=== PATIENT | male | born 1950 | race Caucasian/White ===

== ENCOUNTER 2018-05-20 23:16 | Emergency (ER) | payer OTHER ==
--- OUTSIDE RECORDS SUMMARY | 2018-05-20 23:19 | XMS REPORT | Clinical Summary ---
:1950 Author Organization [facility] Address [address] [place] [address] Care Team Providers Name Role Phone Eros Merritt MD Primary Care Provider Allergies Active Allergy Reactions Severity Noted Date Comments Mold Medications Medication Sig Dispensed Refills Start Date End Date Status atorvastatin Take 10 mg by 0 09/07/2017 Active (LIPITOR) 10 MG mouth nightly. tablet carvedilol (COREG) Take 12.5 mg 0 11/23/2017 Active 12.5 MG tablet by mouth 2 (two) times a day. losartan (COZAAR) 100 Take 100 mg by 0 09/07/2017 Active MG tablet mouth nightly. multivitamin with Take 1 tablet 0 Active minerals tablet by mouth daily. glucosam/chond/msm/sahil Take 3 tablets 0 Active jason/hyal by mouth (GLUCOSAMINE-CHONDR, daily. MSM-HYAL, ORAL) vit C/vit Take 1 tablet 0 Active E/lutein/min/omega-3 by mouth (OCUVITE ORAL) daily. Lactobacillus Take 2 0 Active acidophilus capsules by (PROBIOTIC ORAL) mouth daily. ascorbate calcium Take 1,000 mg 0 Active (VITAMIN C ORAL) by mouth daily. GINKGO BILOBA EXTRACT Take 1 capsule 0 Active ORAL by mouth daily. TURMERIC ORAL Take by mouth. 0 Active curaphen ( turmeric and curcumin) Daily diphenhydrAMINE Take 25 mg by 0 Active (BENADRYL) 25 mg mouth as tablet needed for allergies. docosahexanoic Take 1 capsule 0 Active acid/epa (FISH OIL by mouth ORAL) daily. aspirin 325 MG tablet Take 325 mg by 0 Active mouth 2 (two) times a day as needed. amoxicillin-pot 0 12/21/2017 Discontinued clavulanate 8 (AUGMENTIN) 875-125 mg per tablet bacitracin-polymyxin 0 12/21/2017 Discontinued B (POLYSPORIN) 8 ophthalmic ointment aspirin 325 MG tablet Take 325 mg by 0 Discontinued mouth daily. 8 acetaminophen-codeine Take 1 tablet 60 tablet 0 03/13/2018 (TYLENOL WITH CODEINE by mouth every 9 #3) 300-30 mg per 4 (four) hours tablet as needed for moderate pain for up to 30 days. diazePAM (VALIUM) 5 Take 0.5 20 tablet 0 03/13/2018 Discontinued MG tablet tablets (2.5 8 mg total) by mouth every 8 (eight) hours as needed for muscle spasms for up to 10 days. Active Problems Problem Noted Date S/P cervical spinal fusion 03/11/2018 Degenerative cervical spinal stenosis 12/24/2017 Spinal stenosis of lumbar region with neurogenic claudication 12/24/2017 DDD (degenerative disc disease), cervical 12/09/2017 DDD (degenerative disc disease), lumbar 12/09/2017 Left leg pain 12/09/2017 Right hand pain 12/09/2017 Encounters Date Type Specialty Care Team Description 05/02/2018 Hospital Encounter Ricardo Rened (Patient) MD [facility] 05/02/2018 Hospital Encounter Ricardo Ren Lumbosacral stenosis MD [facility] 05/02/2018 Hospital Encounter Ricardo Ren Lumbosacral anthony Malagon MD 04/25/2018 Transcribe Orders Ricardo Ren Lumbosacral stenosis MD [facility] (Primary Dx) 04/22/2018 Hospital Encounter Ricardo Ren Cervical radiculitis MD [facility] 04/22/2018 Transcribe Orders Ricardo Ren Brachial neuritis ( Primary Dx); MD [facility] Cervical radiculitis 04/08/2018 Office Visit Orthopedic Surgery Magdaleno Ball MD syndrome, unspecified laterality (Primary Dx) 03/24/2018 Anesthesia Event Orthopedic Surgery Shelby Jane MD 03/24/2018 Surgery Orthopedic Surgery Magdaleno Ball MD CARPAL TUNNEL RELEASE AND ANY INDICATED PROCEDURES 03/24/2018 Hospital Encounter Orthopedic Surgery Magdaleno Ball MD 03/11/2018 Surgery General Surgery Ricardo Cortez POSTERIOR CERVICAL MD [facility] LAMINECTOMY AND FUSION W/ ALLOGRAFT, AUTOGRAFT C2-C7 03/11/2018 Anesthesia Event General Surgery Asia Castillo NP 03/11/2018 - Hospital Encounter General Internal Ricardo Cortez DDD ( degenerative disc disease), cervical; 03/13/2018 Medicine MD [facility] Cervical spinal stenosis; Radiculopathy, cervical 03/07/2018 Pre-Admit Testing Pre-Admission Ricardo Cortez Pre-op testing Appointment Testing MD [facility] (Primary Dx) 02/28/2018 Office Visit Orthopedic Surgery Magdaleno Ball Right hand pain MD Mauricio (Primary Dx) 12/24/2017 Office Visit Orthopedic Surgery Danny Wang DDD ( degenerative disc disease), lumbar (Primary Dx); MD Judd DDD (degenerative disc disease), cervical; Degenerative cervical spinal stenosis; Spinal stenosis of lumbar region with neurogenic claudication 12/09/2017 Office Visit Orthopedic Surgery Danny Wang Right hand pain (Primary Dx); MD Judd Left leg pain; DDD (degenerative disc disease), lumbar; DDD (degenerative disc disease), cervical after 05/19/2017 Family History Medical History Relation Name Comments Dementia Mother Heart failure Mother Relation Name Status Comments Father Mother Social History Tobacco Use Types Packs/Day Years Used Date Former Smoker Cigarettes, Cigars 0.25 20 Quit: 1999 Smokeless Tobacco: Never Used Comments: cigar - 1/day also quit 20 years ago Alcohol Use Drinks/Week oz/Week Comments Yes 1 bottle of wine/day - approx 28 servings per week Sex Assigned at Date Recorded Not on file Job Start Date Occupation Industry Not on file Not on file Not on file Travel History Travel Start Travel End No recent travel history available. Last Filed Vital Signs Vital Sign Reading Time Taken Blood Pressure 159/93 05/02/2018 3:30 PM ACTUARIAL ASSOCIATE Pulse 83 05/02/2018 3:30 PM ACTUARIAL ASSOCIATE Temperature 36.7 C (98 F) 05/02/2018 2:50 PM ACTUARIAL ASSOCIATE Respiratory Rate 18 05/02/2018 3:30 PM ACTUARIAL ASSOCIATE Oxygen Saturation 99% 05/02/2018 3:30 PM ACTUARIAL ASSOCIATE Inhaled Oxygen Concentration - - Weight 85.3 kg (188 lb) 05/02/2018 12:16 PM ACTUARIAL ASSOCIATE Height 185.4 cm (6' 1") 05/02/2018 12:16 PM ACTUARIAL ASSOCIATE Body Mass Index 24.8 05/02/2018 12:16 PM ACTUARIAL ASSOCIATE Plan of Treatment Health Maintenance Due Date Last Done Comments COLON CANCER SCREENING 1998 SHINGLES VACCINES (1 of 2) 1998 PNEUMOCOCCAL POLYSACCHARIDE VACCINE AGE 65 AND OVER 2013 PNEUMOCOCCAL-13 Completed 04/30/2016 INFLUENZA VACCINE Completed 01/03/2018 Implants Implanted Type Area Dev Technical Mgr Device Shelf Model / Identifier Expiration Serial / Lot Date Bone Matriz Osteocel Pro Small - [id number] - [id number] Human N/A: NUVASIVE 09/28/2022 [id number] / Implanted: Qty: 1 on 03/11/2018 by Ricardo Cortez MD Tissue N/A [id number] / Implants LOT NA Bone Matriz Osteocel Pro Medium - [id number] - [id number] Human N/A: NUVASIVE 04/07/2022 [id number] / Implanted: Qty: 1 on 03/11/2018 by Ricardo Cortez MD Tissue N/A [id number] / Implants LOT NA Bone Matriz Osteocel Pro Small - [id number] - [id number] Human N/A: NUVASIVE 09/29/2022 [id number] / Implanted: Qty: 1 on 03/11/2018 by Ricardo Cortez MD Tissue N/A [id number] / Implants LOT NA Propel [employer], Large Boat - [id number] - [id number] [id number] IMPLANT N/A: NUVASIVE SPINE 09/21/2019 [id number] / Implanted: Qty: 1 on 03/11/2018 by Ricardo Cortez MD DEVICES N/A [id number] / [id number] Wind Power Project Manager Ii Set Screw - [id number] [id number] IMPLANT N/A: NUVASIVE SPINE [id number] / Implanted: 03/11/2018 (Quantity not on file) DEVICES N/A / 3.5mm Multi Axial Screw X 18mm L - [id number] [id number] IMPLANT N/A: NUVASIVE SPINE [id number] / Implanted: 03/11/2018 (Quantity not on file) DEVICES N/A / 3.5x20mm Multi-Axial - [id number] [id number] IMPLANT N/A: NUVASIVE SPINE [id number] / Implanted: 03/11/2018 (Quantity not on file) DEVICES N/A / 3.5mm Multi Axial Screw X 14mm L - [id number] [id number] IMPLANT N/A: NUVASIVE SPINE [id number] / Implanted: 03/11/2018 (Quantity not on file) DEVICES N/A / 3.5mm Multi Axial Screw X 16mm L - [id number] [id number] IMPLANT N/A: NUVASIVE SPINE [id number] / Implanted: 03/11/2018 (Quantity not on file) DEVICES N/A / 240mm Judd,3.5mm - [id number] [id number] IMPLANT N/A: NUVASIVE SPINE [id number] / Implanted: 03/11/2018 (Quantity not on file) DEVICES N/A / Offset Connector Ortho - N/A: NUVASIVE[employer]. 04/05/2019 [id number] / Implanted: Qty: 1 on 03/11/2018 by Ricardo Cortez MD Spinal N/A [id number] / Implant [id number] Procedures Procedure Name Priority Date/Time Associated Diagnosis Comments CT POST MYELOGRAM Routine 05/02/2018 2:50 Lumbosacral stenosis Results for this LUMBAR PM ACTUARIAL ASSOCIATE procedure are in the results section. IR MYELOGRAM LUMB Routine 05/02/2018 1:29 Lumbosacral stenosis Results for this INCL INJ W S&I PM ACTUARIAL ASSOCIATE procedure are in the results section. XR CERVICAL SPINE Routine 04/22/2018 11:25 Cervical radiculitis Results for this COMPLETE AM ACTUARIAL ASSOCIATE procedure are in the results section. ANESTHESIA Routine 03/24/2018 8:05 PERIPHERAL BLOCK AM ACTUARIAL ASSOCIATE Procedure Note - Lonnie Marx CRNA - 03/24/2018 8:05 AM ACTUARIAL ASSOCIATE Peripheral Block Performed by: Lonnie Marx CRNA Authorized by: Shelby Jane MD Patient Location: OR Start Time: 03/24/2018 8:05 AM End Time: 03/24/2018 8:08 AM Reason for Block: at surgeon's request Staff: Anesthesiologist: Shelby Jane MD Resident/RFID STRATEGIST/AA: Lonnie Marx CRNA Preprocedure: patient identified, IV checked, site and side verified, risks and benefits discussed, procedure verified, surgical consent complete, patient position confirmed, monitors and equipment checked, pre-op evaluation complete and site marked Time Out Performed: 03/24/2018 8:05 AM Peripheral Nerve Block: Patient Position: Supine Prep: alcohol swabs Monitoring: Heart rate, CO2, continuous pulse oximetry and blood pressure monitoring Block Type: Tara block Laterality: Right Injection Technique: Single injection Needle: Needle Gauge: 22 G Assessment: Injection Assessment: No symptoms of intraneural/intravenous injection Paresthesia Pain: None Heart Rate Change: No Slow Fractionated Injection: Yes Block outcome: No apparent complications, patient tolerated procedure well and patient comfortable Notes: R-UE esmarc exsang/tour upx 2/IV lidocaine CARPAL TUNNEL 03/24/2018 8:00 AM Carpal tunnel RELEASE, ENDOSCOPIC ACTUARIAL ASSOCIATE syndrome on right SURGICAL PATHOLOGY Routine 03/11/2018 3:22 PM Results for this REQUEST ACTUARIAL ASSOCIATE procedure are in the results section. OR FL > 1 HOUR Routine 03/11/2018 3:00 PM Results for this ACTUARIAL ASSOCIATE procedure are in the results section. ARTERIAL LINE Routine 03/11/2018 12:55 PM ACTUARIAL ASSOCIATE Procedure Note - Yannick Peralta MD - 03/11/2018 12:55 PM ACTUARIAL ASSOCIATE Arterial line Performed by: Yannick Peralta MD Authorized by: Yannick Peralta MD Patient Location: OR Start Time: 03/11/2018 11:10 AM Staff: Anesthesiologist: Yannick Peralta MD Pre-procedure: patient identified, IV checked, site and side verified, risks and benefits discussed, procedure verified, surgical consent complete, patient position confirmed, monitors and equipment checked and pre-op evaluation complete MSBT: antiseptic used, all elements of maximal sterile barrier technique followed, hand hygiene performed, cap/gown used by other personnel and solutions labeled Indications: Indications: hemodynamic monitoring Anesthesia: Anesthesia: General Procedure Details: Arterial Line placement: Placed post induction Line placement site: Radial Line placement side: Right Arterial line gauge: 20 G Number of attempts: 1 Ultrasound guidance used: No Post-procedure: Post-procedure: Sterile dressing applied Post procedure circulation, sensation, movement: Unchanged and normal Patient tolerance: Patient tolerated the procedure well with no immediate complications NM AN ELECTIVE ENDOTRACHEAL AIRWAY Routine 03/11/2018 11:51 AM ACTUARIAL ASSOCIATE Procedure Note - Farhan Velazquez CRNA - 03/11/2018 11:51 AM ACTUARIAL ASSOCIATE ANESTHESIA INTUBATION Date/Time: 03/11/2018 11:10 AM Performed by: Farhan Velazquez CRNA Authorized by: Yannick Peralta MD Location: OR Urgency: Elective Difficult Airway: No Preoxygenated with 100% O2: Yes C-spine Precautions Maintained Throughout: Yes Mask Ventilation: Easy mask Final Airway Type: Endotracheal airway Final Endotracheal Airway: ETT Technique Used: Direct laryngoscopy Devices/Methods Used in Placement: Intubating stylet Insertion Site: Oral Blade Type: Larry Laryngoscope Blade/Videolaryngoscope Blade Size: 3 ETT Size (mm): 8.0 Measured from: Lips ETT to Lips (cm): 23 Placement Verified by: CO2 detection, direct visualization and equal breath sounds Laryngoscopic view: Grade I - full view of glottis Rapid Sequence Induction (RSI): No Number of Attempts at Approach: 1 FUSION, SPINE, 03/11/2018 11:15 AM ACTUARIAL ASSOCIATE DDD (degenerative disc disease), CERVICAL, POSTERIOR cervical APPROACH Cervical spinal stenosis Radiculopathy, cervical Case Notes PRONE POSITION, EST 3 HRS, BRYAN TABLE, C-ARM, YU HEADREST, NUVASIVE RAVINDER POINT 2, OSTEOCEL Special Needs PRONE POSITION, EST 3 HRS, BRYAN TABLE, C-ARM, YU HEADREST, NUVASIVE RAVINDER POINT 2, OSTEOCEL TYPE AND SCREEN STAT 03/11/2018 8:00 AM Results for this ACTUARIAL ASSOCIATE procedure are in the results section. ESTIMATED GFR Routine 03/07/2018 1:50 PM Results for this ACTUARIAL ASSOCIATE procedure are in the results section. CBC HEMOGRAM Routine 03/07/2018 1:50 PM Pre-op testing Results for this ACTUARIAL ASSOCIATE procedure are in the results section. BASIC METABOLIC Routine 03/07/2018 1:50 PM Pre-op testing Results for this PANEL ACTUARIAL ASSOCIATE procedure are in the results section. XR HAND 3+ VW RIGHT Routine 02/28/2018 1:07 PM Right hand pain Results for this ACTUARIAL ASSOCIATE procedure are in the results section. MRI CERVICAL SPINE Routine 12/15/2017 4:06 PM Right hand pain Results for this WO CONTRAST CDT DDD (degenerative procedure are in disc disease), the results cervical section. MRI LUMBAR SPINE WO Routine 12/15/2017 4:06 PM Left leg pain Results for this CONTRAST CDT DDD (degenerative procedure are in disc disease), the results lumbar section. XR LUMBAR SPINE Routine 12/09/2017 1:44 PM Left leg pain Results for this COMPLETE 4+ VW CDT procedure are in the results section. XR CERVICAL SPINE Routine 12/09/2017 1:44 PM Right hand pain Results for this COMPLETE CDT procedure are in the results section. after 05/19/[address] Post Myelogram Lumbar (05/02/2018 2:50 PM ACTUARIAL ASSOCIATE) Narrative Performed At EXAMINATION: CT POST MYELOGRAM LUMBAR [facility] CLINICAL HISTORY: M48.07 Spinal stenosislumbosacral region, lumbar stenosis, left COMPARISON:MRI 12/15/2017 TECHNIQUE: Axial postintrathecal contrast enhanced images of the lumbar spine were obtained with coronal and sagittal MIP reconstructed imaging. CT imaging was performed with iterative reconstruction technique and/or automated exposure control to reduce radiation dose. FINDINGS: For the purposes of this dictation, the last well-defined interspace is called L5-S1. Mild retrolisthesis of L5 on S1 and L1 and L2. Subtle dextrocurvature of the lumbar spine. Lumbar vertebral body heights are maintained. Multilevel disc degeneration worst at L4-L5 and L5-S1 where there is disc vacuum phenomenon and osteophytosis. 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 The conus medullaris terminates at T12-L1 level.Redundancy of the cauda equina nerve roots likely secondary to spinal stenosis. Left T11-T12 superior lateral recess narrowing. L1-2: Retrolisthesis and disc osteophyte complex results in moderate spinal stenosis. Left greater than right facet arthropathy. Mild left neural foraminal narrowing. L2-3: Disc bulge along with left greater than right facet arthropathy and ligamentum flavum thickening results in marked spinal stenosis. Mild left neural foraminal narrowing. L3-4: Disc bulge along with right greater than left facet arthropathy and ligamentum flavum thickening results in moderate to marked spinal stenosis. Right subarticular zone stenosis. Moderate left and mild right neural foraminal narrowing. L4-5: Disc bulge along with right greater than left facet arthropathy results in marked spinal stenosis and right greater than left subarticular zone stenosis. Moderate left and marked right neural foraminal narrowing with impingement of the exiting right L4 nerve root. L5-S1: Disc bulge with central disc protrusion with inferior migration of disc material results in moderate to marked central spinal stenosis and left greater than right lateral recess stenosis. There is moderate to marked left and moderate to marked right neural foraminal narrowing. No acute fracture or traumatic malalignment of the lumbar spine. There is atherosclerosis of the abdominal aorta. IMPRESSION: Multilevel spondylotic changes of the lumbar spine with multifactorial multilevel moderate to marked spinal stenosis. Multilevel neural foraminal narrowing probably worst at L4-L5 on the right likely impinging on the exiting right L4 nerve root. See level by level details above. [facility]-[id number] Procedure Note [facility], Radiology Results - 05/03/2018 6:26 PM ACTUARIAL ASSOCIATE EXAMINATION: CT POST MYELOGRAM LUMBAR CLINICAL HISTORY: M48.07 Spinal stenosis lumbosacral region, lumbar stenosis, left COMPARISON: MRI 12/15/2017 TECHNIQUE: Axial postintrathecal contrast enhanced images of the lumbar spine were obtained with coronal and sagittal MIP reconstructed imaging. CT imaging was performed with iterative reconstruction technique and/or automated exposure control to reduce radiation dose. FINDINGS: For the purposes of this dictation, the last well-defined interspace is called L5-S1. Mild retrolisthesis of L5 on S1 and L1 and L2. Subtle dextrocurvature of the lumbar spine. Lumbar vertebral body heights are maintained. Multilevel disc degeneration worst at L4-L5 and L5-S1 where there is disc vacuum phenomenon and osteophytosis. 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 The conus medullaris terminates at T12-L1 level. Redundancy of the cauda equina nerve roots likely secondary to spinal stenosis. Left T11-T12 superior lateral recess narrowing. L1-2: Retrolisthesis and disc osteophyte complex results in moderate spinal stenosis. Left greater than right facet arthropathy. Mild left neural foraminal narrowing. L2-3: Disc bulge along with left greater than right facet arthropathy and ligamentum flavum thickening results in marked spinal stenosis. Mild left neural foraminal narrowing. L3-4: Disc bulge along with right greater than left facet arthropathy and ligamentum flavum thickening results in moderate to marked spinal stenosis. Right subarticular zone stenosis. Moderate left and mild right neural foraminal narrowing. L4-5: Disc bulge along with right greater than left facet arthropathy results in marked spinal stenosis and right greater than left subarticular zone stenosis. Moderate left and marked right neural foraminal narrowing with impingement of the exiting right L4 nerve root. L5-S1: Disc bulge with central disc protrusion with inferior migration of disc material results in moderate to marked central spinal stenosis and left greater than right lateral recess stenosis. There is moderate to marked left and moderate to marked right neural foraminal narrowing. No acute fracture or traumatic malalignment of the lumbar spine. There is atherosclerosis of the abdominal aorta. IMPRESSION: Multilevel spondylotic changes of the lumbar spine with multifactorial multilevel moderate to marked spinal stenosis. Multilevel neural foraminal narrowing probably worst at L4-L5 on the right likely impinging on the exiting right L4 nerve root. See level by level details above. [facility]-[id number] Performing Organization Address City/State/Zipcode Phone Number [facility] [address] [place] [address] IR Myelogram Lumb Incl Inj W S&I (05/02/2018 1:29 PM ACTUARIAL ASSOCIATE) Narrative Performed At EXAMINATION:IR MYELOGRAM LUMB INCL INJ W S&I [facility] CLINICAL HISTORY:M48.07 Spinal stenosislumbosacral region, lumbar stenosis COMPARISON:None. PROCEDURE After informed consent was obtained, the patient was placed in the prone position on the fluoroscopy table. The low back was prepped and draped in usual manner. Local anesthesia was made by infiltration percent Xylocaine. Under sterile technique and utilizing fluoroscopic guidance, lumbar puncture was made at the level of the L1 to intervertebral disc space. Approximately 8 mL of Omnipaque 240 milligram iodine per mL were injected without side effects. There is high-grade circumferential narrowing of the thecal sac at L2-3. After some delay contrast passed below the L2-3 segment where there is moderate to severe circumferential narrowing of the thecal sac at L3-4, L4-5 and L5-S1, with bilateral root sleeve defects throughout the lumbar spine slightly more pronounced on the right. The patient tolerated the procedure well. Post mammogram CT will be obtained for more definitive evaluation. 7 images were saved. Total fluoroscopy time 4 minutes 36 seconds. IMPRESSION: Uneventful lumbar myelography. Circumferential spinal canal stenosis with thecal sac compression most severe at L2-3 and to a slightly lesser extent at L3-4 through L5-S1 with bilateral severe defects throughout the lumbar spine more severe on the right. [id number] Procedure Note Interface, Radiology Results Incoming - 05/11/2018 10:41 AM ACTUARIAL ASSOCIATE EXAMINATION: IR MYELOGRAM LUMB INCL INJ W S&I CLINICAL HISTORY: M48.07 Spinal stenosis lumbosacral region, lumbar stenosis COMPARISON: None. PROCEDURE After informed consent was obtained, the patient was placed in the prone position on the fluoroscopy table. The low back was prepped and draped in usual manner. Local anesthesia was made by infiltration percent Xylocaine. Under sterile technique and utilizing fluoroscopic guidance, lumbar puncture was made at the level of the L1 to intervertebral disc space. Approximately 8 mL of Omnipaque 240 milligram iodine per mL were injected without side effects. There is high-grade circumferential narrowing of the thecal sac at L2-3. After some delay contrast passed below the L2-3 segment where there is moderate to severe circumferential narrowing of the thecal sac at L3-4, L4-5 and L5-S1, with bilateral root sleeve defects throughout the lumbar spine slightly more pronounced on the right. The patient tolerated the procedure well. Post mammogram CT will be obtained for more definitive evaluation. 7 images were saved. Total fluoroscopy time 4 minutes 36 seconds. IMPRESSION: Uneventful lumbar myelography. Circumferential spinal canal stenosis with thecal sac compression most severe at L2-3 and to a slightly lesser extent at L3-4 through L5-S1 with bilateral severe defects throughout the lumbar spine more severe on the right. [id number] Performing Organization Address City/State/Zipcode Phone Number [facility] [address] [place] [address] XR Cervical Spine Complete (04/22/2018 11:25 AM ACTUARIAL ASSOCIATE)Only the most recent of2 resultswithin the time period is included. Narrative Performed At EXAMINATION:[facility]:M54.12 Radiculopathycervical region, m54.12 Technique: AP and lateral oblique flexion-extension and open-mouth and swimmer's views of the cervical spine were obtained. Comparison: MRI 12/15/2017 and radiographs 12/09/2017. IMPRESSION: On the lateral view, cervical spine can be visualized to the level of C7. The atlantoaxial interval is within normal limits. No definite acute fracture of the cervical spine. No abnormal prevertebral soft tissue swelling is identified. There is kyphotic reversal of the cervical spine. There are postsurgical changes of C2-C7 posterior spinal fusion with vertical rods and bilateral screws. Hardware is grossly intact. No definite dynamic instability on flexion-extension views. Suggestion of multilevel left-sided neural foraminal narrowing sparing C2-C3 and C7-T1. Suggestive of right C4-C5, C5-C6, and possibly C6-C7 neural foraminal narrowing. Multilevel disc and uncovertebral arthropathy with anterior osteophytosis. [facility]-[id number] Procedure Note Hm Interface, Radiology Results Incoming - 04/22/2018 11:40 AM ACTUARIAL ASSOCIATE EXAMINATION: XR CERVICAL SPINE COMPLETE CLINICAL HISTORY: M54.12 Radiculopathy cervical region, m54.12 Technique: AP and lateral oblique flexion-extension and open-mouth and swimmer' s views of the cervical spine were obtained. Comparison: MRI 12/15/2017 and radiographs 12/09/2017. IMPRESSION: On the lateral view, cervical spine can be visualized to the level of C7. The atlantoaxial interval is within normal limits. No definite acute fracture of the cervical spine. No abnormal prevertebral soft tissue swelling is identified. There is kyphotic reversal of the cervical spine. There are postsurgical changes of C2-C7 posterior spinal fusion with vertical rods and bilateral screws. Hardware is grossly intact. No definite dynamic instability on flexion-extension views. Suggestion of multilevel left-sided neural foraminal narrowing sparing C2-C3 and C7-T1. Suggestive of right C4-C5, C5-C6, and possibly C6-C7 neural foraminal narrowing. Multilevel disc and uncovertebral arthropathy with anterior osteophytosis. [facility]-[id number] Performing Organization Address City/[facility] Phone Number [facility] [address] [place] [address] Surgical pathology request (03/11/2018 3:22 PM ACTUARIAL ASSOCIATE) [facility] DEPARTMENT OF PATHOLOGY AND GENOMIC MEDICINE Surgical pathology report See link below for PDF [facility] DEPARTMENT OF Lab Report PATHOLOGY AND GENOMIC MEDICINE Result status This is Final Report [facility] DEPARTMENT OF for [id number] PATHOLOGY AND GENOMIC MEDICINE Performing Organization Address [facility] Phone Number [facility] DEPARTMENT OF PATHOLOGY AND [address] [place] [address] GENOMIC MEDICINE OR [place] > I Hour (03/11/2018 3:00 PM ACTUARIAL ASSOCIATE) Narrative Performed At EXAMINATION:OR [place] 1 HOUR [facility] C-arm fluoroscopy was requested in OR. Location: [facility] Procedure: C-SPINE FUSION Start: 1215 End: 1500 Fluoro TiMe: 35S Dose: 8.68 mGy Tech: [id number] IMPRESSION: Separate operative report will be issued by the physician performing the procedure. [id number] Procedure Note Hm Interface, Radiology Results Incoming - 03/11/2018 8:42 PM ACTUARIAL ASSOCIATE EXAMINATION: [place] 1 HOUR C-arm fluoroscopy was requested in OR. Location: [facility] Procedure: C-SPINE FUSION Start: 1215 End: 1500 Fluoro TiMe: 35S Dose: 8.68 mGy Tech: [id number] IMPRESSION: Separate operative report will be issued by the physician performing the procedure. [id number] Performing Organization Address City/State/Zipcode Phone Number [facility] [address] [place] [phone] Type and screen (03/11/2018 8:00 AM ACTUARIAL ASSOCIATE) ABO grouping O [facility] Rh type POS [facility] Antibody screen (gel) NEG [facility] Specimen Blood Performing Organization Address [facility] Phone Number [facility] DEPARTMENT OF PATHOLOGY AND [address] [place] [phone] Estimated GFR (03/07/2018 1:50 PM ACTUARIAL ASSOCIATE) Estimated GFR >=90 mL/min/1.73 m2 [facility] Comment: HOSPITAL CatergoryUnitsInterpretation G1 >=90 Normal or high G2 60-89Mildly decreased [id number] to moderately decreased [id number] to severely decreased G4 15-29Severely decreased G5 <15Kidney failure The eGFR was calculated using the Chronic Kidney Disease Epidemiology Collaboration (CKD-EPI) equation. Interpretation is based on recommendations of the National Kidney Foundation-Kidney Disease Outcomes Quality Initiative (NKF-KDOQI) published in 2014. Specimen Plasma specimen Performing Organization Address [facility]/Zipcode Phone Number [facility] DEPARTMENT OF PATHOLOGY AND [address] [place] [phone] CBC hemogram (03/07/2018 1:50 PM ACTUARIAL ASSOCIATE) WBC 6.50 4.50 - 11.00 k/uL [facility] RBC 3.89 (L) 4.40 - 6.00 m/uL [facility] HGB 13.4 (L) 14.0 - 18.0 g/dL [facility] HCT 38.9 (L) 41.0 - 51.0 % [facility] MCV 100.0 82.0 - 100.0 fL [facility] MCH 34.4 (H) 27.0 - 34.0 pg [facility] MCHC 34.4 31.0 - 37.0 g/dL [facility] RDW - SD 47.4 37.0 - 55.0 fL [facility] MPV 10.4 8.8 - 13.2 fL [facility] Platelet count 204 150 - 400 k/uL [facility] Nucleated RBC 0.00 /100 WBC [facility] Specimen Blood Performing Organization Address City/[facility] Phone Number [facility] DEPARTMENT OF PATHOLOGY AND [address] [place] [address] [address] Basic metabolic panel (03/07/2018 1:50 PM ACTUARIAL ASSOCIATE) Sodium 138 135 - 148 mEq/L [facility] Potassium 4.4 3.5 - 5.0 mEq/L [facility] Chloride 97 (L) 98 - 112 mEq/L [facility] CO2 25 24 - 31 mEq/L [facility] Anion gap 16@ANIO (H) 7 - 15 mEq/L [facility] BUN 15 8 - 23 mg/dL [facility] Creatinine 0.76 0.70 - 1.20 mg/dL [facility] Glucose 92 65 - 99 mg/dL [facility] Calcium 9.5 8.8 - 10.2 mg/dL [facility] Specimen Plasma specimen Performing Organization Address City/[facility]/Zipcode Phone Number [facility] DEPARTMENT OF PATHOLOGY AND [address] [place] [id number] [address] XR Hand 3+ Vw Right (02/28/2018 1:07 PM ACTUARIAL ASSOCIATE) Narrative Performed At 3 views Rt hand in good penetrance and quality with out any acute obvious [facility] fractures, dislocations or calcifications unless HPI states otherwise. Performing Organization Address City/[facility]/Zipcode Phone Number HM [facility] [address] [place] [phone] MRI Lumbar Spine Wo Contrast (12/15/2017 4:06 PM CDT) Narrative Performed At [facility] EXAM:MRI LUMBAR SPINE WO CONTRAST COMPARISON: None. CLINICAL HISTORY: M79.605 Pain in left leg, M51.36 Other intervertebral disc degenerationlumbar region, left leg pain TECHNIQUE: Multiplanar multisequence examination was performedWithout contrast. FINDINGS: Sagittal images demonstrate lumbar congenital spinal canal stenosis. There is diffuse degenerative disc space narrowing throughout the lumbar spine most severe at L4-5 and L5-S1 with prominent Modic type II fibrofatty reactive changes at L4-5. Axial images demonstrate the following: L5-S1: There is a broad-based central and left paracentral disc protrusion with caudal fragment migration on the left. There is significant thecal sac compression and compression of the S1 roots more severe on the left. L4-5: There is diffuse annular bulging. There are prominent facet joint hypertrophic changes and ligamentum flavum thickening more severe on the left. There is severe spinal canal stenosis and lateral recess stenosis slightly worse on the left. L3-4: There is annular bulging and spondylosis with moderate to severe central canal stenosis and bilateral foraminal stenosis. There is moderate left lateral recess stenosis as well. L2-3: There is diffuse annular bulging and spondylosis with moderate multifactorial central canal stenosis. L1-2: There is annular bulging with moderate multifactorial central canal stenosis. IMPRESSION: Congenital lumbar spinal canal stenosis. Fairly large central and left paracentral caudal extrusion at L5-S1 with severe spinal canal stenosis and bilateral compression worse on the left. Moderately severe multifactorial spinal canal stenosis and bilateral lateral recess stenosis at L5. Moderate central canal stenosis at L2-3 and [id number] Procedure Note Interface, Radiology Results - 12/15/2017 4:25 PM CDT EXAM: MRI LUMBAR SPINE WO CONTRAST COMPARISON: None. CLINICAL HISTORY: M79.605 Pain in left leg, M51.36 Other intervertebral disc degeneration lumbar region, left leg pain TECHNIQUE: Multiplanar multisequence examination was performed Without contrast. FINDINGS: Sagittal images demonstrate lumbar congenital spinal canal stenosis. There is diffuse degenerative disc space narrowing throughout the lumbar spine most severe at L4-5 and L5-S1 with prominent Modic type II fibrofatty reactive changes at L4-5. Axial images demonstrate the following: L5-S1: There is a broad-based central and left paracentral disc protrusion with caudal fragment migration on the left. There is significant thecal sac compression and compression of the S1 roots more severe on the left. L4-5: There is diffuse annular bulging. There are prominent facet joint hypertrophic changes and ligamentum flavum thickening more severe on the left. There is severe spinal canal stenosis and lateral recess stenosis slightly worse on the left. L3-4: There is annular bulging and spondylosis with moderate to severe central canal stenosis and bilateral foraminal stenosis. There is moderate left lateral recess stenosis as well. L2-3: There is diffuse annular bulging and spondylosis with moderate multifactorial central canal stenosis. L1-2: There is annular bulging with moderate multifactorial central canal stenosis. IMPRESSION: Congenital lumbar spinal canal stenosis. Fairly large central and left paracentral caudal extrusion at L5-S1 with severe spinal canal stenosis and bilateral compression worse on the left. Moderately severe multifactorial spinal canal stenosis and bilateral lateral recess stenosis at L5. Moderate central canal stenosis at L2-3 and [id number] Performing Organization Address City/State/Zipcode Phone Number [facility] [address] [place] [address] MRI Cervical Spine Wo Contrast (12/15/2017 4:06 PM CDT) Narrative Performed At EXAMINATION:MRI CERVICAL SPINE WO CONTRAST [facility] CLINICAL HISTORY:M79.641 Pain in right hand, M50.30 Other cervical disc degenerationunspecified cervical region, right hand pain COMPARISON:Cervical spine December 09, 2017. FINDINGS: C1-2: No significant abnormality. C2-3: There is minimal spondylolisthesis of C2 relative to C3 with moderate to marked degenerative changes the facet joints. There is mild spondylosis and a broad left paracentral dorsal disc protrusion contacting the ventral surface of the spinal cord. There is moderate (7 mm) canal stenosis with spinal cord volume loss on the left but no definite active cord correction. There is mild foraminal stenosis on the left. C3-4: There is grade 1 spondylolisthesis of C3 relative is C4 with considerable degenerative change in the facet joints. There is moderate spondylosis with broad dorsal osteophyte formation greater on the left. There is contact with the ventral surface of the spinal cord with mild to moderate (8 mm) canal stenosis. There is slight spinal cord volume loss and posterior displacement of the spinal cord on the left but there is no cord compression. There are uncovertebral hypertrophic changes bilaterally with moderate to marked foraminal stenosis on the left and moderate foraminal stenosis on the right. C4-5: There is moderate kyphosis with apex at this level. There is marked ventral spondylosis and degenerative change in the disc. There is slight retrolisthesis of C4 relative to C5. There is a broad dorsal disc protrusion slightly greater on the right. There is moderate (7 mm) canal stenosis with considerable spinal cord volume loss. I cannot exclude an element of cord compression. There are bilateral uncovertebral hypertrophic changes with marked bilateral foraminal stenosis. C5-6: There is slight retrolisthesis of C5 in relation C6. There is marked ventral spondylosis. There is a broad dorsal disc protrusion/bulge greater on the right. There is mild to moderate (8 mm) canal stenosis with slight spinal cord volume loss but no cord compression. There are bilateral uncovertebral hypertrophic changes with moderate to marked bilateral foraminal stenosis greater on the right. C6-7: There is slight retrolisthesis of C6 relative to C7. There is moderate spondylosis and degenerative change in the disc. There are mild degenerative changes the facet joints. There is a shallow dorsal disc bulge slightly greater on the right without spinal canal stenosis. There is uncovertebral hypertrophic change with moderate foraminal stenosis on the right and minimal foraminal narrowing on the left. C7-T1: There is mild spondylosis and degenerative change in the facet joints without stenosis. There is no signal abnormality demonstrated in the spinal cord and no evidence of Chiari malformation. IMPRESSION: Cervical kyphosis and marked spondylosis with multilevel spinal canal and foraminal stenosis as described above. There is no signal abnormality in the spinal cord. [id number] Procedure Note Hm Interface, Radiology Results 12/15/2017 4:26 PM CDT EXAMINATION: MRI CERVICAL SPINE WO CONTRAST CLINICAL HISTORY: M79.641 Pain in right hand, M50.30 Other cervical disc degeneration unspecified cervical region, right hand pain COMPARISON: Cervical spine December 09, 2017. FINDINGS: C1-2: No significant abnormality. C2-3: There is minimal spondylolisthesis of C2 relative to C3 with moderate to marked degenerative changes the facet joints. There is mild spondylosis and a broad left paracentral dorsal disc protrusion contacting the ventral surface of the spinal cord. There is moderate (7 mm) canal stenosis with spinal cord volume loss on the left but no definite active cord correction. There is mild foraminal stenosis on the left. C3-4: There is grade 1 spondylolisthesis of C3 relative is C4 with considerable degenerative change in the facet joints. There is moderate spondylosis with broad dorsal osteophyte formation greater on the left. There is contact with the ventral surface of the spinal cord with mild to moderate (8 mm) canal stenosis. There is slight spinal cord volume loss and posterior displacement of the spinal cord on the left but there is no cord compression. There are uncovertebral hypertrophic changes bilaterally with moderate to marked foraminal stenosis on the left and moderate foraminal stenosis on the right. C4-5: There is moderate kyphosis with apex at this level. There is marked ventral spondylosis and degenerative change in the disc. There is slight retrolisthesis of C4 relative to C5. There is a broad dorsal disc protrusion slightly greater on the right. There is moderate (7 mm) canal stenosis with considerable spinal cord volume loss. I cannot exclude an element of cord compression. There are bilateral uncovertebral hypertrophic changes with marked bilateral foraminal stenosis. C5-6: There is slight retrolisthesis of C5 in relation C6. There is marked ventral spondylosis. There is a broad dorsal disc protrusion/bulge greater on the right. There is mild to moderate (8 mm) canal stenosis with slight spinal cord volume loss but no cord compression. There are bilateral uncovertebral hypertrophic changes with moderate to marked bilateral foraminal stenosis greater on the right. C6-7: There is slight retrolisthesis of C6 relative to C7. There is moderate spondylosis and degenerative change in the disc. There are mild degenerative changes the facet joints. There is a shallow dorsal disc bulge slightly greater on the right without spinal canal stenosis. There is uncovertebral hypertrophic change with moderate foraminal stenosis on the right and minimal foraminal narrowing on the left. C7-T1: There is mild spondylosis and degenerative change in the facet joints without stenosis. There is no signal abnormality demonstrated in the spinal cord and no evidence of Chiari malformation. IMPRESSION: Cervical kyphosis and marked spondylosis with multilevel spinal canal and foraminal stenosis as described above. There is no signal abnormality in the spinal cord. [id number] [facility] Organization Address City/State/Zipcode Phone Number [facility] [address] [place] [address] XR Lumbar Spine Complete 4+ Vw (12/09/2017 1:44 PM CDT) Narrative Performed At X-rays of the lumbar spine demonstrate some loss of the lumbar lordotic [facility] curve.Generalized disc degeneration is noted with disc space narrowing and osteophyte formation.No compression deformities are seen and no spondylolisthesis is noted Performing Organization Address City/State/Zipcode Phone Number [facility] [address] [place] [address] after 05/19/2017 Insurance Payer Benefit Plan / Group Subscriber ID Type Phone Address AETNA MEDICARE AETNA MEDICARE HMO/PPO [facility] xxxxxxxx HMO Advance Directives Patient has advance care planning documents on file. For more information, please contact:Jose Massey[address] [place] [address]
[2018-05-20] MEDS ORDERED: LIDOCAINE 1% 20 ML MDV ONE (23:52)
[2018-05-20] MEDS ORDERED: TETANUS & DIPHTHERIA TOX,ADULT 0.5 ML VIAL ONE (23:52)
[2018-05-20] MEDS ORDERED: BUPIVACAINE 0.5% PF 10 ML VIAL ONE (23:52)
[2018-05-21] MEDS ORDERED: DERMABOND SKIN ADHESIVE TOP ONE (00:43)
--- NOTE | 2018-05-21 01:33 | ER ---
Nurse's Notes [facility] Name: Carter Mahan Age: 67 yrs Sex: Male : 1950 Arrival Date: 05/20/2018 Time: 23:17 Bed 23 Private MD: Eros Merritt V Diagnosis: Laceration without foreign body of unspecified part of head;Laceration without foreign body of unspecified part of neck;Laceration without foreign body of left middle finger without damage to nail;Laceration without foreign body of left ring finger without damage to nail Presentation: 05/20 23:24 Presenting complaint: Patient states: I fell on the ground with broken glass and mg2 lacerated my left hand and sustained some small scratches and lacerations on my face. denies n/v. Transition of care: patient was not received from another setting of care. Complicating Factors: There are no complicating factors for this patient. Onset of symptoms was May 20, 2018. Risk Assessment: Do you want to hurt yourself or someone else? Patient reports no desire to harm self or others. Initial Sepsis Screen: Does the patient meet any 2 criteria? No. Patient's initial sepsis screen is negative. Does the patient have a suspected source of infection? No. Patient's initial sepsis screen is negative. Care prior to arrival: None. 23:24 Method Of Arrival: Ambulatory mg2 23:24 Acuity: MILADY 4 mg2 Triage Assessment: 05/21 00:05 General: Appears in no apparent distress. comfortable, Behavior is calm, cooperative. mg2 Pain: Complains of pain in left hand Pain does not radiate. Pain currently is 2 out of 10 on a pain scale. Quality of pain is described as aching, Pain began suddenly, 1 hour ago. Is intermittent. EENT: No signs and/or symptoms were reported regarding the EENT system. Neuro: Level of Consciousness is awake, alert, obeys commands, Oriented to person, place, time, situation. Cardiovascular: Capillary refill < 3 seconds Patient's skin is warm and dry. Respiratory: Airway is patent Respiratory effort is even, unlabored, Respiratory pattern is regular, symmetrical. GI: No signs and/or symptoms were reported involving the gastrointestinal system. : No signs and/or symptoms were reported regarding the genitourinary system. Derm: Skin is healthy with good turgor, has skin tears on face and left hand. Musculoskeletal: Circulation, motion, and sensation intact. Capillary refill < 3 seconds. Injury Description: Laceration sustained to face and left hand. Historical: - Allergies: 00:13 No Known Allergies; mg2 - Home Meds: 00:13 carvedilol oral oral [Active]; losartan oral oral [Active]; atorvastatin oral oral mg2 [Active]; - PMHx: 00:13 Hypertension; Hyperlipidemia; carpal tunnel syndrome; prostate cancer; spinal stenosis; mg2 - PSHx: 00:13 lower back surgery; mg2 - Immunization history:: Pneumococcal vaccine is up to date, Flu vaccine is up to date. - Social history:: Smoking status: Patient/guardian denies using tobacco, Patient uses alcohol, occasionally. Patient/guardian denies using street drugs, IV drugs. - Ebola Screening: : No symptoms or risks identified at this time. Screenin:05 Abuse screen: Denies threats or abuse. Denies injuries from another. Nutritional mg2 screening: No deficits noted. Tuberculosis screening: No symptoms or risk factors identified. Fall Risk Fall in past 12 months (25 points). Assessment: 00:16 Reassessment: see triage assessment. mg2 01:46 Injury Description: Laceration sustained to neck and left hand and face is clean, 0.5 mg2 to 2.5 cm long, bleeding moderately, was sustained 2-4 hours ago. is bleeding a small amount a dressing was applied. Vital Signs: 05/20 23:31 BP 140 / 84; Pulse 81; Resp 18; Temp 98; Pulse Ox 100% on R/A; Weight 84.37 kg; Height mg2 6 ft. 0 in. (182.88 cm); Pain 3/10; 0216 01:46 BP 130 / 78; Pulse 80; Resp 18; Pulse Ox 100% on R/A; Pain 0/10; mg2 05/20 23:31 Body Mass Index 25.23 (84.37 kg, 182.88 cm) mg2 ED Course: 05/20 23:17 Patient arrived in ED. am2 23:17 Eros Merritt MD is Private Physician. am2 23:20 Tiara Yip, ANA is Primary Nurse. ca1 23:20 Keri Taylor NP is PHCP. pm1 23:20 Roro Andino MD is Attending Physician. pm1 23:31 Triage completed. mg2 23:49 Hand Left 3 View XRAY In Process Unspecified. EDMS 05/21 00:02 X-ray completed. Portable x-ray completed in exam room. Patient tolerated procedure az well. 00:05 Primary Nurse role handed off by Tiara Yip, ANA mg2 00:05 Roberto Medina, ANA is Primary Nurse. mg2 00:05 Patient did not have IV access during this emergency room visit. mg2 00:07 Arm band placed on. mg2 00:07 Patient has correct armband on for positive identification. Pulse ox on. NIBP on. mg2 01:42 Assist provider with laceration repair on head, neck and left hand using steri-strips, mg2 dermabond and sutures. . Set up tray. Performed by Keri Taylor RESOURCE SPECIALIST TEACHER Dressed with Neosporin, Patient tolerated well. Administered Medications: 00:14 Drug: Bupivacaine (0.5 %) 10 ml {Note: by keri.} Volume: 10 ml; Route: Infiltration; mg2 01:37 Follow up: Response: No adverse reaction; Marked relief of symptoms mg2 00:14 Drug: Lidocaine (1 %) 20 ml {Note: by butch saavedra.} Volume: 20 ml; Route: Infiltration; mg2 01:37 Follow up: Response: No adverse reaction; Marked relief of symptoms mg2 00:15 Drug: Tetanus-Diphtheria Toxoid Adult 0.5 ml {Legal Secretary: [employer]. Exp: mg2 04/23/2020. Lot #: [id number]. } Route: IM; Site: right deltoid; 01:37 Follow up: Response: No adverse reaction mg2 Outcome: 01:32 Discharge ordered by MD. pm1 01:48 Discharged to home ambulatory. mg2 01:48 Condition: stable 01:48 Discharge instructions given to patient, Instructed on discharge instructions, follow up and referral plans. medication usage, Demonstrated understanding of instructions, follow-up care, medications, Prescriptions given X 1. 01:48 Patient left the ED. mg2 Signatures: Dispatcher [employer] EDAK Keri Taylor, BUTCH RESOURCE SPECIALIST TEACHER pm1 Gisele Morley am2 Roberto Medina, ANA PEREZ mg2 [place] Tiara Yip RN RN ca1 Corrections: (The following items were deleted from the chart) 05/20 23:32 23:24 Presenting complaint: Patient states: I fell on the ground and lacerated my left mg2 hand and sustained some small scratches and lacerations on my face. denies n/v. mg2 05/21 00:08 05/20 23:31 BP 140 / 84; Pulse 81bpm; Resp 18bpm; Pulse Ox 100%; Temp 98F; Pain 3/10; mg2 mg2
--- NOTE | 2018-05-21 01:34 | EDPHYS ---
Physician Documentation [facility] Name: Carter Mahan Age: 67 yrs Sex: Male : 1950 Arrival Date: 05/20/2018 Time: 23:17 Bed 23 Private MD: Eros Merritt V ED Physician Roro Andino HPI: 05/21 01:00 This 67 yrs old Male presents to ER via Ambulatory with complaints of pm1 Laceration To Hand, Laceration To Scalp/Face, Fall Injury. 01:00 The patient has a laceration related to: Tripped over pet cats occurred at home, and pm1 there are no complicating factors. The laceration(s) is(are) located on the neck and left hand and face. Onset: The symptoms/episode began/occurred just prior to arrival. Associated signs and symptoms: Pertinent negatives: deformity, dizziness, numbness distal to injury, suspected foreign body. The patient has not experienced similar symptoms in the past. The patient has not recently seen a physician. Patient was walking into his house and was tripped by his cats that were trying to get back into the house. He was holding wine glasses in his hand and broke the glass on his left hand. Patient without any headache of neck pain or LOC. Has laceration to left side of neck, left eyebrow and left cheek. Historical: - Allergies: 00:13 No Known Allergies; mg2 - Home Meds: 00:13 carvedilol oral oral [Active]; losartan oral oral [Active]; atorvastatin oral oral mg2 [Active]; - PMHx: 00:13 Hypertension; Hyperlipidemia; carpal tunnel syndrome; prostate cancer; spinal stenosis; mg2 - PSHx: 00:13 lower back surgery; mg2 - Immunization history:: Pneumococcal vaccine is up to date, Flu vaccine is up to date. - Social history:: Smoking status: Patient/guardian denies using tobacco, Patient uses alcohol, occasionally. Patient/guardian denies using street drugs, IV drugs. - Ebola Screening: : No symptoms or risks identified at this time. ROS: 01:00 Constitutional: Negative for fever, chills, and weight loss, Eyes: Negative for injury, pm1 pain, redness, and discharge, ENT: Negative for injury, pain, and discharge, Neck: Negative for injury, pain, and swelling, Cardiovascular: Negative for chest pain, palpitations, and edema, Respiratory: Negative for shortness of breath, cough, wheezing, and pleuritic chest pain, Abdomen/GI: Negative for abdominal pain, nausea, vomiting, diarrhea, and constipation, Back: Negative for injury and pain, : Negative for injury, bleeding, discharge, and swelling. 01:00 Neuro: Negative for headache, weakness, numbness, tingling, and seizure. 01:00 MS/extremity: Positive for laceration, of the left hand, Negative for decreased range of motion, deformity. 01:00 Skin: Positive for laceration(s), of the left hand and face and neck. Exam: 01:00 Constitutional: This is a well developed, well nourished patient who is awake, alert, pm1 and in no acute distress. 01:00 Eyes: Pupils equal round and reactive to light, extra-ocular motions intact. Lids and lashes normal. Conjunctiva and sclera are non-icteric and not injected. Cornea within normal limits. Periorbital areas with no swelling, redness, or edema. ENT: Nares patent. No nasal discharge, no septal abnormalities noted. Tympanic membranes are normal and external auditory canals are clear. Oropharynx with no redness, swelling, or masses, exudates, or evidence of obstruction, uvula midline. Mucous membranes moist. 01:00 Chest/axilla: Normal chest wall appearance and motion. Nontender with no deformity. No lesions are appreciated. Cardiovascular: Regular rate and rhythm with a normal S1 and S2. No gallops, murmurs, or rubs. Normal PMI, no JVD. No pulse deficits. Respiratory: Lungs have equal breath sounds bilaterally, clear to auscultation and percussion. No rales, rhonchi or wheezes noted. No increased work of breathing, no retractions or nasal flaring. Abdomen/GI: Soft, non-tender, with normal bowel sounds. No distension or tympany. No guarding or rebound. No evidence of tenderness throughout. Back: No spinal tenderness. No costovertebral tenderness. Full range of motion. 01:00 Head/face: Noted is no obvious of injury or deformity except abrasion(s), that are mild, of the forehead and left jaw, a laceration(s), of the outer aspect of left eyebrow and left jaw. 01:00 Neck: External neck: laceration, of the left anterior aspect of neck, with no appreciated foreign body, no underlying injury appreciated, C-spine: vertebral tenderness, is not appreciated, ROM/movement: no acute changes. 01:00 Musculoskeletal/extremity: Extremities: all appear grossly normal, with no appreciated pain with palpation. 01:00 Skin: Appearance: normal except for affected area, injury, laceration(s), the wound is approximately 4 cm(s), of the palmar aspect of proximal phalanx of left ring finger and palmar aspect of proximal phalanx of left middle finger. 01:00 Neuro: Orientation: is normal, Motor: moves all fours. Vital Signs: 05/20 23:31 BP 140 / 84; Pulse 81; Resp 18; Temp 98; Pulse Ox 100% on R/A; Weight 84.37 kg; Height mg2 6 ft. 0 in. (182.88 cm); Pain 3/10; 05/21 01:46 BP 130 / 78; Pulse 80; Resp 18; Pulse Ox 100% on R/A; Pain 0/10; mg2 05/20 23:31 Body Mass Index 25.23 (84.37 kg, 182.88 cm) mg2 Laceration: 01:12 Wound Repair of 4cm ( 1.6in ) subcutaneous laceration to palmar aspect of proximal pm1 phalanx of left ring finger and palmar aspect of proximal phalanx of left middle finger. Irregularly shaped.. Distal neuro/vascular/tendon intact. Anesthesia: Digital block administered with 3 mls of Lido/Marcaine. Wound prep: Extensive cleansing with hibiclenz by nurse, Wound irrigation with saline by nurse, Wound explored extensively, Copious irrigation. Skin closed with 10 4-0 Prolene using simple sutures and sterile technique. Dressed with Bacitracin, tube gauze. Patient tolerated well. 01:12 Wound Repair of 1cm ( 0.4in ) subcutaneous laceration to outer aspect of left eyebrow. pm1 Irregularly shaped.. Distal neuro/vascular/tendon intact. Anesthesia: Local anesthetic administered with 1 mls of Lido/Marcaine. Wound prep: Extensive cleansing with hibiclenz by nurse, Wound irrigation with saline by nurse, Wound explored extensively, Copious irrigation. Skin closed with 2 6-0 Prolene using simple sutures and sterile technique. Dressed with Bacitracin. Patient tolerated well. 01:12 Wound Repair of 3cm ( 1.2in ) subcutaneous laceration to left anterior aspect of neck. pm1 Linear shaped.. Distal neuro/vascular/tendon intact. Anesthesia: Local anesthetic administered with 3 mls of Lido/Marcaine. Wound prep: Extensive cleansing with hibiclenz by nurse, Wound irrigation with saline by nurse, Wound explored extensively, Copious irrigation. Skin closed with 5 6-0 Prolene using simple sutures and sterile technique. Dressed with Bacitracin, non-adherent dressing. Patient tolerated well. 01:12 Wound Repair of 2cm ( 0.8in ) subcutaneous laceration to left jaw. Linear shaped.. pm1 Distal neuro/vascular/tendon intact. Anesthesia: Local anesthetic administered with 2 mls of Lido/Marcaine. Wound prep: Extensive cleansing with hibiclenz by nurse, Wound irrigation with saline by nurse, Wound explored extensively, Copious irrigation. Skin closed with 3 6-0 Prolene using simple sutures and sterile technique. Dressed with non-adherent dressing. Patient tolerated well. MDM: 05/20 23:21 Patient medically screened. pm1 05/21 00:07 Data reviewed: vital signs. Data interpreted: Pulse oximetry: on room air is 100 %. pm1 Interpretation: normal. 01:19 Counseling: I had a detailed discussion with the patient and/or guardian regarding: the pm1 historical points, exam findings, and any diagnostic results supporting the discharge/admit diagnosis, radiology results, the need for outpatient follow up, to return to the emergency department if symptoms worsen or persist or if there are any questions or concerns that arise at home. 05/20 23:26 Order name: Hand Left 3 View XRAY pm1 05/20 23:27 Order name: Prolene, Sutures; Complete Time: 00:15 pm1 05/20 23:27 Order name: Dressing - Wound; Complete Time: 00:15 pm1 05/20 23:27 Order name: Gloves, Sterile; Complete Time: 00:15 pm1 05/20 23:27 Order name: Setup Suture Tray; Complete Time: 00:15 pm1 Administered Medications: 00:14 Drug: Bupivacaine (0.5 %) 10 ml {Note: by keri.} Volume: 10 ml; Route: Infiltration; mg2 01:37 Follow up: Response: No adverse reaction; Marked relief of symptoms mg2 00:14 Drug: Lidocaine (1 %) 20 ml {Note: by butch saavedra.} Volume: 20 ml; Route: Infiltration; mg2 01:37 Follow up: Response: No adverse reaction; Marked relief of symptoms mg2 00:15 Drug: Tetanus-Diphtheria Toxoid Adult 0.5 ml {[employer]: [employer]. Exp: mg2 04/23/2020. Lot #: [id number]. } Route: IM; Site: right deltoid; 01:37 Follow up: Response: No adverse reaction mg2 Disposition: 04:40 Co-signature as Attending Physician, Roro Andino MD. ma2 Disposition: 05/21/18 01:32 Discharged to Home. Impression: Laceration without foreign body of unspecified part of head, Laceration without foreign body of unspecified part of neck, Laceration without foreign body of left middle finger without damage to nail, Laceration without foreign body of left ring finger without damage to nail. - Condition is Stable. - Discharge Instructions: Laceration Care, Adult, Facial Laceration, Stitches, [place], or Adhesive Wound Closure. - Prescriptions for Keflex 500 mg Oral Capsule - take 1 capsule by ORAL route every 12 hours for 10 days; 20 capsule. - Medication Reconciliation Form, Thank You Letter, Antibiotic Education form. - Follow up: Emergency Department; When: As needed; Reason: Worsening of condition. Follow up: Private Physician; When: 4-5 days; Reason: Recheck today's complaints, Continuance of care, Staple/Suture removal, Re-evaluation by your physician. - Problem is new. - Symptoms have improved. Signatures: Dispatcher [employer] EDFL Keri Taylor, BUTCH LOSS CONTROL REPRESENTATIVE pm1 Roro Andino MD MD ma2 Roberto Medina RN RN mg2 Corrections: (The following items were deleted from the chart) 01:48 01:32 05/21/2018 01:32 Discharged to Home. Impression: Laceration without foreign body mg2 of unspecified part of head; Laceration without foreign body of unspecified part of neck; Laceration without foreign body of left middle finger without damage to nail; Laceration without foreign body of left ring finger without damage to nail. Condition is Stable. Forms are Medication Reconciliation Form, Thank You Letter, Antibiotic Education, Prescription Opioid Use. Follow up: Emergency Department; When: As needed; Reason: Worsening of condition. Follow up: Private Physician; When: 4-5 days; Reason: Recheck today's complaints, Continuance of care, Staple/Suture removal, Re-evaluation by your physician. Problem is new. Symptoms have improved. pm1
--- NOTE | 2018-05-21 11:56 | RAD REPORT ---
EXAM DESCRIPTION: RAD - Hand Left 3 View - 05/20/2018 11:48 pm CLINICAL HISTORY: laceration COMPARISON: No comparisons FINDINGS: No fracture, dislocation or radiopaque foreign body is seen.
== END 2018-05-21 01:48 | disposition home or self-care (01) ==
LOC: ER 23:16
PROC: 0JQK0ZZ Repair Left Hand Subcutaneous Tissue and Fascia, Open Approach (ICD-10-PCS; principal; 2018-05-21)
PROC: 0JQ10ZZ Repair Face Subcutaneous Tissue and Fascia, Open Approach (ICD-10-PCS; 2018-05-21)
PROC: 0JQ50ZZ Repair Left Neck Subcutaneous Tissue and Fascia, Open Approach (ICD-10-PCS; 2018-05-21)
DX: S61.215A Laceration without foreign body of left ring finger without damage to nail, initial encounter (principal); S01.112A Laceration without foreign body of left eyelid and periocular area, initial encounter; S11.91XA Laceration without foreign body of unspecified part of neck, initial encounter; S01.81XA Laceration without foreign body of other part of head, initial encounter; W25.XXXA Contact with sharp glass, initial encounter; Y93.01 Activity, walking, marching and hiking; Y92.009 Unspecified place in unspecified non-institutional (private) residence as the place of occurrence of the external cause; Z23 Encounter for immunization; I10 Essential (primary) hypertension; E78.5 Hyperlipidemia, unspecified
CPT/HCPCS: 90714; 99284

== ENCOUNTER 2019-05-26 20:47 | Emergency (ER) | payer OTHER ==
[2019-05-26 21:56] LABS: Urine Appearance TURBID; Urine Blood 3+ (NEG); Urine Color RED; Urine Glucose TRACE (NEG); Urine Protein 3+ (NEG); Urine Specific Gravity >=1.030 (1.005-1.030)
[2019-05-26 22:00] LABS: Urine Bilirubin NEGATIVE (NEG)
[2019-05-26 22:01] LABS: Urine Bacteria >50 /HPF (NONE SEEN); Urine Culture Reflex Order REFLEXED; Urine RBC LOADED /HPF (NONE SEEN)
[2019-05-26 22:47] LABS: Absolute Lymphocytes (CBC) 1.1 K/uL (0.7-4.9); Basophils % 0.9 % (0-1.3); Hematocrit 38.3 % (39.6-49.0); Lymphocytes % 15.7 % (15.3-44.8); MPV 8.5 fL (7.6-11.3); RBC Red Blood Cell Count 3.91 M/uL (4.33-5.43)
[2019-05-26 22:48] LABS: Protime INR 0.94
[2019-05-26 22:59] LABS: ALT/SGPT 27 U/L (12-78); AST/SGOT 25 U/L (15-37); Albumin 3.8 g/dL (3.4-5.0); Alkaline Phosphatase 74 U/L (45-117); BUN Blood Urea Nitrogen 14 mg/dL (7-18); Bicarbonate 26 mmol/L (21-32); Bilirubin Direct 0.2 mg/dL (0-0.2); Bilirubin Total 0.5 mg/dL (0.2-1.0); Glucose Level 98 mg/dL (74-106); Magnesium 1.9 mg/dL (1.8-2.4); NT PRO-BNP 58 pg/mL (<125); Potassium 3.9 mmol/L (3.5-5.1); Protein, Total 7.4 g/dL (6.4-8.2); Sodium Level 128 mmol/L (136-145); Troponin (Emerg Dept Use Only) < 0.02 ng/mL (0.0-0.045)
[2019-05-26] MEDS ORDERED: CEFTRIAXONE/SWI 1gm 1 GM/10 ML SYR ONE (23:53)
--- NOTE | 2019-05-27 02:18 | ER ---
Nurse's Notes [facility] Name: Carter Mahan Age: 68 yrs Sex: Male : 1950 Arrival Date: 05/26/2019 Time: 20:48 Bed 13 Private MD: Diagnosis: Hematuria-gross;Dizziness and giddiness Presentation: 05/26 20:53 Presenting complaint: Patient states: "I started passing blood in my urine, I went to [facility] my urologist and they did a scope and they found I was bleeding from my bladder and they said that was from the radiation I had for prostate cancer. They told me to stop taking blood thinners and that seemed to help, then last night I had a lot of pressure, and a lot of blood clots, then today I kept passing blood clots, they keep getting bigger, and then I started feeling dizzy". Transition of care: patient was not received from another setting of care. Onset of symptoms was May 26, 2019. Risk Assessment: Do you want to hurt yourself or someone else? Patient reports no desire to harm self or others. Initial Sepsis Screen: Does the patient meet any 2 criteria? No. Patient's initial sepsis screen is negative. Does the patient have a suspected source of infection? No. Patient's initial sepsis screen is negative. Care prior to arrival: None. 20:53 Method Of Arrival: Ambulatory [facility] 20:53 Acuity: MILADY 3 aj1 Triage Assessment: 20:58 General: Appears in no apparent distress. comfortable, Behavior is calm, cooperative, aj1 appropriate for age. Pain: Denies pain. Neuro: Level of Consciousness is awake, alert, obeys commands, Oriented to person, place, time, situation. Cardiovascular: Patient's skin is warm and dry. Respiratory: Airway is patent Respiratory effort is even, unlabored, Respiratory pattern is regular, symmetrical. Historical: - Allergies: 20:58 No Known Allergies; aj1 - Home Meds: 20:58 atorvastatin Oral [Active]; carvedilol Oral [Active]; losartan Oral [Active]; Myrbetriq aj1 oral oral [Active]; - PMHx: 20:58 carpal tunnel syndrome; Hyperlipidemia; Hypertension; Prostate Cancer; spinal stenosis; aj1 - Immunization history:: Flu vaccine is up to date. - Coronavirus screen:: The patient has NOT traveled to [place] in the past 14 days. - Social history:: Smoking status: Patient/guardian denies using tobacco. - Ebola Screening: : Patient denies travel to an Ebola-affected area in the 21 days before illness onset. Screenin:00 Abuse screen: Denies threats or abuse. Denies injuries from another. Nutritional rr5 screening: No deficits noted. Tuberculosis screening: No symptoms or risk factors identified. Fall Risk IV access (20 points). Total Patino Fall Scale indicates No Risk (0-24 pts). Assessment: 21:00 General: Appears in no apparent distress. uncomfortable, Behavior is calm, cooperative, rr5 appropriate for age. 21:00 Pain: Denies pain. Neuro: Level of Consciousness is awake, alert, obeys commands, rr5 Oriented to person, place, time, situation, Appropriate for age Reports dizziness. Cardiovascular: Capillary refill < 3 seconds Patient's skin is warm and dry. Respiratory: Airway is patent Respiratory effort is even, unlabored, Respiratory pattern is regular, symmetrical. GI: No signs and/or symptoms were reported involving the gastrointestinal system. : Urine is fresh blood noted Reports blood in urine\\E\\. EENT: No signs and/or symptoms were reported regarding the EENT system. Derm: Skin is intact, is healthy with good turgor, Skin temperature is warm. Musculoskeletal: Circulation, motion, and sensation intact. Capillary refill < 3 seconds. 21:35 Reassessment: fresh blood of urine given and sent to laboratory. rr5 22:35 Reassessment: Patient appears in no apparent distress at this time. No changes from rr5 previously documented assessment. Patient is alert, oriented x 3, equal unlabored respirations, skin warm/dry/pink. awaiting for laboratory results. 23:35 Reassessment: Patient appears in no apparent distress at this time. Patient and/or rr5 family updated on plan of care and expected duration. Pain level reassessed. Patient is alert, oriented x 3, equal unlabored respirations, skin warm/dry/pink. 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 05/27 00:30 Reassessment: Patient appears in no apparent distress at this time. No changes from rr5 previously documented assessment. Patient is alert, oriented x 3, equal unlabored respirations, skin warm/dry/pink. 01:55 Reassessment: Patient appears in no apparent distress at this time. Patient is alert, rr5 oriented x 3, equal unlabored respirations, skin warm/dry/pink. bladder irrigation using NS 1 liter done, blood clots noted and after the irrigation the urine output still red without clots noted. ED provider aware. awaiting for transfer, ED provider trying to call the urologist. 02:20 Reassessment: Patient appears in no apparent distress at this time. No changes from rr5 previously documented assessment. awaiting for the urologist acceptance. 03:21 Reassessment: Patient appears in no apparent distress at this time. complaints like it rr5 feels pressure on my bladder. NS irrigation done, multiple blood clots extracted from the catheter, drain 350 ml of urine. 04:00 Reassessment: staff nurse Isabella from [facility] report given and accepted the case. rr5 04:20 Reassessment: complaint of pressure in his bladder, clots noted in the catheter tube. rr5 irrigation done multiple clots extracted. ED provider aware. 05:00 Reassessment: Patient appears in no apparent distress at this time. Patient is alert, rr5 oriented x 3, equal unlabored respirations, skin warm/dry/pink. report given to [facility] awake alert no complaints made. with IV cannula ongoing NS at 75 ml/Hr, with Kuo catheter to urine bag draining red urine with clots. Vital Signs: 05/26 20:58 BP 152 / 99; Pulse 87; Resp 18; Temp 97.0; Pulse Ox 97% on R/A; Weight 82.1 kg (R); aj1 Height 6 ft. 1 in. (185.42 cm) (R); Pain 0/10; 21:30 BP 151 / 99 Supine; Pulse 74; Resp 17; Pulse Ox 99% ; rr5 21:31 BP 154 / 99 Sitting; Pulse 81; Resp 16; Pulse Ox 98% ; rr5 21:32 BP 163 / 106 Standing; Pulse 85; Resp 19; Pulse Ox 98% ; rr5 05/27 00:35 BP 146 / 102; Pulse 77; Resp 16; Temp 98.7; Pulse Ox 99% ; Pain 0/10; rr5 03:00 BP 149 / 94; Pulse 75; Resp 18; Pulse Ox 99% on R/A; rr5 04:10 BP 147 / 85; Pulse 70; Resp 19; Temp 98; Pulse Ox 98% ; rr5 05:00 BP 141 / 90; Pulse 75; Resp 16; Pulse Ox 98% on R/A; rr5 05/26 20:58 Body Mass Index 23.88 (82.10 kg, 185.42 cm) aj1 05/26 21:32 complaints of dizziness rr5 ED Course: 20:48 Patient arrived in ED. jg7 20:56 Triage completed. aj1 20:58 Arm band placed on Patient placed in an exam room. aj1 21:00 Patient has correct armband on for positive identification. Placed in gown. Bed in low rr5 position. Call light in reach. manager monitoring on. Pulse ox on. NIBP on. 21:07 Naif Ramirez PA is PHCP. cp 21:07 Naif Pop MD is Attending Physician. cp 21:19 Xander Ascencio, ANA is Primary Nurse. rr5 22:30 Inserted saline lock: 20 gauge in right forearm, using aseptic technique. Blood oe collected. 22:46 bladder oznp=[id number]. oe 05/27 00:31 Kuo cath inserted, using sterile technique, 16 Fr., by vice president quality assurance, balloon inflated, to rr5 gravity drainage, clamped. other fresh blood inserted by Rory Patient tolerated well. 01:30 Bladder scan completed. 94 ml. rr5 05:00 Patient transferred, IV remains in place. intact, No redness/swelling at site. rr5 Administered Medications: 00:36 Drug: Rocephin - (cefTRIAXone) 1 grams Route: IVPB; Infused Over: 30 mins; Site: right rr5 forearm; 01:30 Follow up: Response: No adverse reaction; IV Status: Completed infusion rr5 03:35 Drug: NS 0.9% 1000 ml Route: IV; Rate: 75 ml/hr; Site: right forearm; rr5 05:00 Follow up: Response: No adverse reaction; IV Status: Infusion continued upon transfer; rr5 IV Intake: 120ml 03:36 Drug: Tylenol 1000 mg Route: PO; rr5 04:30 Follow up: Response: No adverse reaction rr5 Intake: 05:00 IV: 120ml; Total: 120ml. rr5 01:55 after bladder irrigation rr5 03:21 after bladder irrigation. rr5 04:20 after bladder irrigation rr5 Output: 01:55 Urine: 150ml (Kuo); Total: 150ml. rr5 03:21 Urine: 240ml (Kuo); Total: 390ml. rr5 04:20 Urine: 250ml (Kuo); Total: 640ml. rr5 01:55 after bladder irrigation rr5 03:21 after bladder irrigation. rr5 04:20 after bladder irrigation rr5 Outcome: 02:17 ER care complete, transfer ordered by . crystal 05:00 Transferred by ground EMS to [facility], Transfer form completed. rr5 05:00 Condition: stable 05:00 Instructed on the need for transfer. 05:07 Patient left the ED. rr5 Signatures: Tess Huitron, RN RN aj1 Naif Ramirez PA PA cp Espinosa, [place] oe Roque, Raymond, RN RN rr5 Melita Jarrett jg7 Corrections: (The following items were deleted from the chart) 00:42 00:31 Kuo cath inserted, using sterile technique, Patient tolerated well. oe rr5 04:29 04:20 Reassessment: complaint of pressure in his catheter, clots noted in the catheter rr5 tube. irrigation done multiple clots extracted. ED provider aware. rr5
--- NOTE | 2019-05-27 02:19 | EDPHYS ---
Physician Documentation [facility] Name: Carter Mahan Age: 68 yrs Sex: Male : 1950 Arrival Date: 05/26/2019 Time: 20:48 Bed 13 Private MD: Naif Quiroz HPI: 05/26 21:45 This 68 yrs old Male presents to ER via Ambulatory with complaints of BLOOD cp IN URINE, Dizziness. Historical: - Allergies: 20:58 No Known Allergies; aj1 - Home Meds: 20:58 atorvastatin Oral [Active]; carvedilol Oral [Active]; losartan Oral [Active]; Myrbetriq aj1 oral oral [Active]; - PMHx: 20:58 carpal tunnel syndrome; Hyperlipidemia; Hypertension; Prostate Cancer; spinal stenosis; aj1 - Immunization history:: Flu vaccine is up to date. - Coronavirus screen:: The patient has NOT traveled to [place] in the past 14 days. - Social history:: Smoking status: Patient/guardian denies using tobacco. - Ebola Screening: : Patient denies travel to an Ebola-affected area in the 21 days before illness onset. ROS: 21:50 Constitutional: Negative for body aches, chills, fever, poor PO intake. cp 21:50 Eyes: Negative for injury, pain, redness, and discharge. cp 21:50 ENT: Negative for drainage from ear(s), ear pain, sore throat, difficulty swallowing, difficulty handling secretions. 21:50 Cardiovascular: Negative for chest pain, edema, palpitations. 21:50 Respiratory: Negative for cough, shortness of breath, wheezing. 21:50 Abdomen/GI: Negative for abdominal pain, nausea, vomiting, and diarrhea. 21:50 Back: Negative for pain at rest, pain with movement, radiated pain. 21:50 : Positive for hematuria, difficulty urinating, Negative for flank pain, testicular pain 21:50 Skin: Negative for rash. 21:50 Neuro: Positive for dizziness, headache, Negative for altered mental status, syncope, weakness. 21:50 All other systems are negative. Exam: 21:55 Constitutional: The patient appears in no acute distress, alert, awake, cp non-diaphoretic, non-toxic, well developed, well nourished. 21:55 Head/Face: Normocephalic, atraumatic. cp 21:55 Eyes: Periorbital structures: appear normal, Conjunctiva: normal, no exudate, no cp injection, Sclera: no appreciated abnormality, Lids and lashes: appear normal, bilaterally. 21:55 ENT: External ear(s): are unremarkable, Nose: is normal, Mouth: is normal, Posterior cp pharynx: is normal, airway is patent, no erythema, no exudate. 21:55 Neck: ROM/movement: is normal, is supple, without pain, no range of motions limitations, no nuchal rigidity. 21:55 Chest/axilla: Inspection: normal, Palpation: is normal, no crepitus, no tenderness. 21:55 Cardiovascular: Rate: normal, Rhythm: regular, Edema: is not appreciated, JVD: is not appreciated. 21:55 Respiratory: the patient does not display signs of respiratory distress, Respirations: normal, no use of accessory muscles, no retractions, labored breathing, is not present, Breath sounds: are clear throughout, no decreased breath sounds. 21:55 Abdomen/GI: Inspection: abdomen appears normal, Bowel sounds: active, all quadrants, Palpation: abdomen is soft and non-tender, in all quadrants, rebound tenderness, is not appreciated, voluntary guarding, is not appreciated, involuntary guarding, is not appreciated. 21:55 Back: pain, is absent, ROM is normal. 21:55 Skin: no rash present. 21:55 Neuro: Orientation: to person, place \T\ time. Mentation: is normal, Cerebellar function: is grossly normal, Motor: moves all fours, strength is normal, Sensation: is normal, Gait: is steady. 22:15 ECG was reviewed by the Attending Physician. cp Vital Signs: 20:58 BP 152 / 99; Pulse 87; Resp 18; Temp 97.0; Pulse Ox 97% on R/A; Weight 82.1 kg (R); aj1 Height 6 ft. 1 in. (185.42 cm) (R); Pain 0/10; 21:30 BP 151 / 99 Supine; Pulse 74; Resp 17; Pulse Ox 99% ; rr5 21:31 BP 154 / 99 Sitting; Pulse 81; Resp 16; Pulse Ox 98% ; rr5 21:32 BP 163 / 106 Standing; Pulse 85; Resp 19; Pulse Ox 98% ; rr5 05/27 00:35 BP 146 / 102; Pulse 77; Resp 16; Temp 98.7; Pulse Ox 99% ; Pain 0/10; rr5 03:00 BP 149 / 94; Pulse 75; Resp 18; Pulse Ox 99% on R/A; rr5 04:10 BP 147 / 85; Pulse 70; Resp 19; Temp 98; Pulse Ox 98% ; rr5 05:00 BP 141 / 90; Pulse 75; Resp 16; Pulse Ox 98% on R/A; rr5 05/26 20:58 Body Mass Index 23.88 (82.10 kg, 185.42 cm) aj1 05/26 21:32 complaints of dizziness rr5 MDM: 21:12 Patient medically screened. [facility] 05/27 02:00 Data reviewed: vital signs, nurses notes, lab test result(s), EKG, I have discussed the cp patient's presentation/case with the attending Emergency Department Physician;. 02:14 Physician consultation: DR Zapien, patient's primary urologist, will consult on patient cp and request transfer to [facility]. 02:49 Physician consultation: was contacted at 02:45, regarding regarding transfer, to [facility]. patient's condition, DR Koo, hospitalist [facility], will accept patient as transfer. 05/26 21:08 Order name: Urine Microscopic Only cp 05/26 21:43 Order name: Basic Metabolic Panel cp 05/26 21:43 Order name: CBC with Diff cp 05/26 21:43 Order name: LFT's cp 05/26 21:43 Order name: Magnesium cp 05/26 21:43 Order name: NT PRO-BNP cp 05/26 21:43 Order name: PT-INR cp 05/26 21:43 Order name: Troponin (emerg Dept Use Only) cp 05/26 21:43 Order name: Type And Screen cp 05/26 22:01 Order name: Urinalysis W/Microscopic; Complete Time: 23:00 EDMS 05/26 23:03 Interpretation: Normal except: UKET 2+; UBLD 3+; UPROT 3+; UUROB 2.0; U NIT POSITIVE; cp UESTR 3+; UWBC 5-10; URBC LOADED; UBACT >50. 05/26 22:49 Order name: CBC with Automated Diff; Complete Time: 23:00 EDMS 05/26 23:02 Interpretation: Normal except: RBC 3.91; HGB 13.1; HCT 38.3. cp 05/26 22:49 Order name: Protime (+INR); Complete Time: 23:00 EDMS 05/26 23:01 Order name: Basic Metabolic Panel; Complete Time: 23:02 EDMS 05/26 23:47 Interpretation: Normal except: NA 128; CL 93; CA 8.4. cp 05/26 23:01 Order name: Liver (Hepatic) Function; Complete Time: 23:02 EDMS 05/27 00:06 Interpretation: Normal except: GLOB 3.6. cp 05/26 21:07 Order name: Orthostatics; Complete Time: 21:35 cp 05/26 21:08 Order name: Urine Dipstick-Ancillary (obtain specimen); Complete Time: 22:50 cp 05/26 21:43 Order name: XRAY Chest (1 view) cp 05/26 21:43 Order name: EKG; Complete Time: 21:44 cp 05/26 23:01 Order name: Troponin (Emerg Dept Use Only); Complete Time: 23:02 EDMS 05/26 23:01 Order name: NT PRO-BNP; Complete Time: 23:02 EDMS 05/26 23:01 Order name: Magnesium; Complete Time: 23:02 EDMS 05/26 23:02 Order name: Lactate cp 05/26 23:02 Order name: Blood Culture Adult (2) cp 05/26 23:02 Order name: Procalcitonin cp 05/26 23:39 Order name: Type and Screen; Complete Time: 23:47 EDMS 05/27 00:36 Order name: Lactate; Complete Time: 00:39 EDMS 05/27 00:56 Order name: Procalcitonin; Complete Time: 00:57 EDMS 05/27 00:57 Interpretation: Reviewed. cp 05/26 21:43 Order name: Cardiac monitoring; Complete Time: 22:31 cp 05/26 21:43 Order name: EKG - Nurse/Tech; Complete Time: 22:31 cp 05/26 21:43 Order name: IV Saline Lock; Complete Time: 22:31 cp 05/26 21:43 Order name: Labs collected and sent; Complete Time: 22:50 cp 05/26 21:43 Order name: O2 Per Protocol; Complete Time: 22:50 cp 05/26 21:43 Order name: O2 Sat Monitoring; Complete Time: 22:50 cp 05/26 21:43 Order name: Bladder Scanner: post void; Complete Time: 22:46 cp 05/26 23:00 Order name: Kuo-Hematuria; Complete Time: 00:39 cp 05/26 23:47 Order name: Vital Signs: please update to include temp; Complete Time: 00:34 cp EC/21 22:15 Rate is 76 beats/min. Rhythm is regular. IN interval is normal. QRS interval is normal. cp QT interval is normal. Interpreted by me. Reviewed by me. Administered Medications: 05/27 00:36 Drug: Rocephin - (cefTRIAXone) 1 grams Route: IVPB; Infused Over: 30 mins; Site: right rr5 forearm; 01:30 Follow up: Response: No adverse reaction; IV Status: Completed infusion rr5 03:35 Drug: NS 0.9% 1000 ml Route: IV; Rate: 75 ml/hr; Site: right forearm; rr5 05:00 Follow up: Response: No adverse reaction; IV Status: Infusion continued upon transfer; rr5 IV Intake: 120ml 03:36 Drug: Tylenol 1000 mg Route: PO; rr5 04:30 Follow up: Response: No adverse reaction rr5 Disposition: 05/28 00:03 Co-signature as Attending Physician, Naif Pop MD I agree with the assessment and carlos plan of care. Disposition: 05/27/19 02:17 Transfer ordered to [facility]. Diagnosis are Hematuria - gross, Dizziness and giddiness. - Reason for transfer: Higher level of care. - Accepting physician is DR Koo. - Condition is Stable. - Problem is new. - Symptoms have improved. Signatures: Dispatcher [employer] EDTess Szymanski RN RN aj1 Naif Pop MD MD cha Page, Corey, PA PA cp Roque, Raymond RN RN rr5 Corrections: (The following items were deleted from the chart) 05/26 23:47 23:03 Normal except: NA 128; CL 93. cp cp 05/27 02:48 02:17 05/27/2019 02:17 Transfer ordered to [facility]. Diagnosis is Hematuria - cp gross; Dizziness and giddiness. Reason for transfer: Higher level of care. Accepting physician is Doctor. Condition is Stable. Problem is new. Symptoms have improved. cp 05:07 02:48 05/27/2019 02:17 Transfer ordered to [facility]. Diagnosis is Hematuria - rr5 gross; Dizziness and giddiness. Reason for transfer: Higher level of care. Accepting physician is DR Koo. Condition is Stable. Problem is new. Symptoms have improved. cp
[2019-05-27] MEDS ORDERED: ACETAMINOPHEN 500 MG TAB ONE (03:37)
[2019-05-27] MEDS ORDERED: NA CHLORIDE 0.9% 1,000 ML ONE (03:38)
[2019-05-27 05:42] VITALS: TEMP 98; O2SAT 98
[2019-05-27 05:43] VITALS: BP 141/90
--- NOTE | 2019-05-27 08:15 | RAD REPORT ---
EXAM DESCRIPTION: RAD - Chest Single View - 05/26/2019 10:37 pm CLINICAL HISTORY: dizziness, shortness of breath COMPARISON: No comparisons TECHNIQUE: AP portable chest image was obtained 05/26/2019 10:37 pm . FINDINGS: No focal mass or consolidation. Mild prominence of the interstitial pattern is believed to be baseline. Small granuloma seen in the left upper lung field. Heart and vasculature are normal. No measurable pleural effusion and no pneumothorax. No acute bony abnormality seen. No acute aortic fin dings suspected. IMPRESSION: No focal mass or consolidation. No significant failure or volume overload. Lung markings and vasculature are mildly prominent. This is probably baseline. However, a minimal yoana unt of interstitial edema or infiltrate cannot be excluded.
--- NOTE | 2019-05-27 16:28 | EKG ---
Test Date: 2019-05-26 Test Time: 22:11:29 Laboratory Associate: MARIN MEASUREMENT RESULTS: Intervals: Rate: 76 NC: 132 QRSD: 80 QT: 396 QTc: 445 [place]: P: 49 NC: 132 QRS: -30 T: 31 INTERPRETIVE STATEMENTS: Normal sinus rhythm Left axis deviation Abnormal ECG Compared to ECG 06/07/2007 16:54:09 Left-axis deviation now present Electronically Signed On 05-27-19 16:27:19 MENTAL HEALTH NURSE PRACTITIONER by Jair Villegas
== END 2019-05-27 05:07 | disposition short-term general hospital (02) ==
LOC: ER 20:47
DX: R31.9 Hematuria, unspecified (principal); R42 Dizziness and giddiness; I10 Essential (primary) hypertension; E78.5 Hyperlipidemia, unspecified; Z85.46 Personal history of malignant neoplasm of prostate
CPT/HCPCS: 96365; 96361; 93005; 87040 ×2; 87088; 85025; 81001; 87086; 80048; 36415; 86900; 83735; 86850; 85610; 86901; 80076; 83605; 84484; 84145; 83880; 71045; 51702; 99285; J0696; J7030

== ENCOUNTER 2020-04-16 08:48 | Day surgery (SDC) | payer OTHER ==
[2020-04-15 11:13] LABS: Absolute Lymphocytes (CBC) 1.2 K/uL (0.7-4.9); Basophils % 0.7 % (0-1.3); Hematocrit 36.6 % (39.6-49.0); Lymphocytes % 22.7 % (15.3-44.8); MPV 9.1 fL (7.6-11.3); RBC Red Blood Cell Count 3.75 M/uL (4.33-5.43)
[2020-04-15 11:21] LABS: BUN Blood Urea Nitrogen 19 mg/dL (7-18); Bicarbonate 31 mmol/L (21-32); Glucose Level 85 mg/dL (74-106); Potassium 4.1 mmol/L (3.5-5.1); Sodium Level 138 mmol/L (136-145)
--- NOTE | 2020-04-15 11:22 | RAD REPORT ---
EXAM DESCRIPTION: Efrain Mott (2 Views)04/15/2020 11:14 am CLINICAL HISTORY: Preop exam for cyst removal from right groin COMPARISON: May 2019 FINDINGS: The lungs are hyperaerated Calcified granuloma left lung The lungs appear clear of acute infiltrate. The heart is normal size IMPRESSION: No acute abnormalities displayed
[2020-04-16] MEDS ORDERED: Ringers Lactate 1,000 ML IV ONE (09:14)
[2020-04-16] MEDS ORDERED: CEFAZOLIN/SWI 1gm 1 GM/10 ML SYR ONE (09:15)
[2020-04-16] MEDS ORDERED: propofoL 200 MG/20 ML VIAL IV ONE (09:18)
[2020-04-16] MEDS ORDERED: MIDAZOLAM HCL 2 MG/2 ML INJ ONE (09:18)
[2020-04-16] MEDS ORDERED: ONDANSETRON 4 MG/2 ML VIAL ONE (09:19)
[2020-04-16] MEDS ORDERED: KETOROLAC 30 MG/ML INJ ONE (09:19)
[2020-04-16] MEDS ORDERED: FENTANYL CITR 100 MCG/2 ML ONE (09:19)
[2020-04-16] MEDS ORDERED: dexAMETHasone 10 MG/ML VIAL ONE (09:19)
[2020-04-16] MEDS ORDERED: LIDOCAINE 2% MPF 5 ML VIAL ONE (09:19)
[2020-04-16] MEDS ORDERED: NS 0.9% VIAL 10 ML ONE (10:10)
[2020-04-16] MEDS ORDERED: EPHEDRINE SULF 50 MG/ML VIAL ONE (10:23)
[2020-04-16 10:41] VITALS: O2SAT 100
--- NOTE | 2020-04-16 11:00 | OP ---
Date of Procedure: 04/16/2020 Surgeon: Randolph Main MD Commercial Account Officer: None. Preoperative Diagnosis: Right groin mass. Postoperative Dignosis: Right groin mass. Procedure Performed: Wide excision, right groin mass with layered closure, 4 x 2 cm. Estimated Blood Loss: Minimal. Specimen: Right groin mass. Findings: As above. Anesthesia: General. Complications: None. Disposition: The patient tolerated the procedure in stable condition and taken to Recovery in good g eneral condition. Procedure In Detail: The patient was brought to the OR and placed in supine position. General anest hesia was begun. The patient was placed in a frog-leg position. Prepped and draped in the usual raj rile fashion. Marcaine 0 5% was infiltrated locally. Then, a 15 blade was used to make a 4 x 2 cm in cision in the right groin where there was a punctum of a mass present. Subcutaneous tissue was divid ed. Entire mass excised in 1 piece and sent to Pathology as specimen. Wound was irrigated. Bleedin g was controlled with cautery. A 3-0 chromic was used to approximate the subcutaneous tissue and 5-0 nylon was used to close the skin. Sterile dressing was applied. The patient was awakened and taken to Recovery in good condition. Discharge Note: The patient will go to Day Surgery and home when stable. Disposition: Home. Condition: Stable. Discharge Instructions: Resume home meds and diet. Activity as tolerated. No heavy lifting. Remov e outer dressing in 2 days. Shower. Keep wound clean and dry. Follow up in my office in 9 days, ca ll for appointment. Tylenol No.3 one tablet p.o. q.4 p.r.n. pain. Keflex 500 mg p.o. q.6. /MODL Voice ID: [id number] Report ID: [id number]
[2020-04-16 12:46] VITALS: BP 151/80; TEMP 97
== END 2020-04-16 12:08 | disposition home or self-care (01) ==
LOC: OR 08:48
PROVIDERS: ATTEND Surgery
PROC: 0JBC0ZZ Excision of Pelvic Region Subcutaneous Tissue and Fascia, Open Approach (ICD-10-PCS; principal; 2020-04-16 10:00)
DX: L72.0 Epidermal cyst (principal); Z20.822 Contact with and (suspected) exposure to COVID-19
CPT/HCPCS: 11404; 93005; 85025; 80048; 36415; 88304; 71046; U0002; J2704; J2250; J3010; J1100; J0690; J7120; J2405; 88305

== ENCOUNTER 2020-10-15 11:08 | Emergency (ER) | payer OTHER ==
--- OUTSIDE RECORDS SUMMARY | 2020-10-15 11:10 | XMS REPORT | Continuity of Care Document ---
:1950 Author Organization [facility] t Address [address] [place] [address] Care Team Providers Name Role Phone Curry PAK L Primary Care Physician LEXIE Attending Clinician Unavailable RICHIE Admitting Clinician Unavailable Problems Condition Condition Condition Status Onset Resolution Last Treating Co mments Source Name Details Category Date Date Treatment Clinician Date Gross Gross Disease Active [place] hematuria hematuria 2-22 Meth alisa 00:00: st 00 Hematuria Hematuria Disease Active Magaly ston 2-22 [facility]i 00:00: st 00 Degenerati Degenerati Disease Active [place] ve disc ve disc 5-09 [facility] disease, disease, 00:00: st lumbar lumbar 00 S/P S/P Disease Active 2017-04 [place] cervical cervical 2-07 Method i spinal spinal 00:00: st fusion fusion 00 Degenerati Degenerati Disease Active [place] ve ve 9-21 [facility] cervical cervical 00:00: st spinal spinal 00 stenosis stenosis Spinal Spinal Disease Active [place] stenosis stenosis 9-21 Method i of lumbar of lumbar 00:00: st region region 00 with with neurogenic neurogenic claudicati claudicati on on DDD DDD Disease Active [place] (degenerat (degenerat 9-06 Me thodi mavis disc mavis disc 00:00: st disease), disease), 00 cervical cervical DDD DDD Disease Active [place] (degenerat (degenerat 9-06 Me thodi mavis disc mavis disc 00:00: st disease), disease), 00 lumbar lumbar Left leg Left leg Disease Active [place] pain pain 12-09 Methodi 00:00: st 00 Right hand Right hand Disease Active [place] pain pain 9 Methodi 00:00: st 00 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 -16 Anderso prostate prostate 00:00: n 00 Elevated Elevated Disease Active prostate prostate 16 Don o specific specific 00:00: n antigen antigen 00 (PSA) (PSA) Essential Essential Disease Active (primary) (primary) 16 [place] hypertensi hypertensi 00:00: n on on Hyperchole Hyperchole Disease Active M D sterolemia sterolemia 16 An derso 00:00: n 00 Male Male Disease Active erectile erectile 08-18 Don o dysfunctio dysfunctio 00:00: n n n 00 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 [place] penis penis 00:00: n 00 Allergies, Adverse Reactions, Alerts Allergy Allergy Status Severity Reaction(s) Onset Inactive Treating Comm ents Source Name Type Date Date Clinician Pollen Propensi Active [place] Extracts ty to 5-03 Methodi adverse 00:00: st reaction 00 s to drug Mold Propensi Active Garcia ty to 1-01 Methodi adverse 00:00: st reaction 00 s to drug Family History Family Member Diagnosis Comments Start Date Stop Date Source Natural mother Dementia [facility] Natural mother Heart failure Jose Massey Maternal aunt Breast cancer Jovany son Maternal aunt Lung cancer MD Carito talbot Maternal grandmother Cancer MD Adele martinezrson Social History Social Habit Start Date Stop Date Quantity Comments Source History of tobacco Cigar Smoker [place] [facility] use Cigarettes smoked 2018-08-15 2018-08-15 Jose Barajasist current (pack per 00:00:00 00:00:00 day) - Reported Cigarette 2018-08-15 2018-08-15 Jose Barajas ist pack-years 00:00:00 00:00:00 Tobacco use and 2018-08-15 2018-08-15 Never used Jose Locke ethodist exposure 00:00:00 00:00:00 Alcohol intake 2018-08-15 2018-08-15 Current drinker [place] Yarsani 00:00:00 00:00:00 of alcohol (finding) Tobacco Comment 2018-03-07 2018-03-07 cigar - 1/day [place] [facility] 00:00:00 00:00:00 also quit 20 years ago Alcohol Comment 2018-03-07 2018-03-07 1 bottle of [place] Yarsani 00:00:00 00:00:00 wine/day - approx 28 servings per week Sex [birth year] Jose Locke ethodist 00:00:00 00:00:00 Smoking Status Start Date Stop Date Source Former smoker 2018-08-15 00:00:00 2018-08-15 00:00:00 [place] Yarsani Medications Ordered Filled Start Stop Current Ordering Indication Dosage Frequency Signature Comments Components Source Medication Medication Date Date Medication? Clinician (SIG) Name Name multivitami 2020-0 Yes 1{tbl} QD Take 1 [place] with 2-23 tablet by [facility] minerals 12:48: mouth st tablet 17 daily. glucosam/ch 2020-0 Yes 3{tbl} QD Take 3 [place] ond/msm/bor 2-23 tablets by De thalisa on/hyal 12:48: mouth st (GLUCOSAMIN 17 daily. E-CHONDR, MSM-HYAL, ORAL) vit C/vit 2020-0 Yes 1{tbl} QD Take 1 [place] E/lutein/mi 2-23 tablet by Met hodi n/omega-3 12:48: mouth st (OCUVITE 17 daily. ORAL) Lactobacill 2020-0 Yes 2{capsu QD Take 2 [place] us 2-23 le} capsules Methodi acidophilus 12:48: by mouth st (PROBIOTIC 17 daily. ORAL) ascorbate 2020-0 Yes 1000mg QD Take 1,000 Garcia calcium 2-23 mg by [facility] (VITAMIN C 12:48: mouth st ORAL) 17 daily. diphenhydrA 2020-0 Yes 25mg Take 25 mg Garcia MINE 2-23 by mouth Methodi (BENADRYL) 12:48: as needed st 25 mg 17 for tablet allergies. mirabegron 2020-0 Yes 50mg QD Take 50 mg [place] (MYRBETRIQ) 2-23 by mouth Meth alisa 50 mg 12:48: every st tablet 17 morning. extended release 24 hr carvedilol Yes 12.5mg Q.5D Take 12.5 Garcia (COREG) 8-21 mg by Methodi 12.5 MG 00:00: mouth 2 st tablet 00 (two) times a day. atorvastati Yes 10mg QD Take 10 mg Garcia n (LIPITOR) 6-05 by mouth Meth alisa 10 MG 00:00: nightly. st tablet 00 losartan Yes 100mg QD Take 100 [place] (COZAAR) 6-05 mg by Methodi 100 MG 00:00: mouth st tablet 00 nightly. triamterene Yes Adenocarcin TAKE 1 MD -hydrochlor 1-04 laura of TABLET BY A juanrsqiana othiazide 00:00: prostate MOUTH ONCE n (DYAZIDE) 00 A DAY IN 37.5 mg-25 THE AM mg per capsule losartan 2016-04 Yes Adenocarcin TAKE 1 MD (COZAAR) 2-11 laura of TABLET BY [place] 100 mg 00:00: prostate MOUTH n tablet 00 EVERY DAY carvedilol 2016-04 Yes Adenocarcin ONE TABLET MD (COREG) 2-10 laura of ORALLY Anderso 6.25 mg 00:00: prostate TWICE A n tablet 00 DAY. atorvastati 2016-04 Yes 1{tbl} Take 1 MD n (LIPITOR) 1-13 tablet by And erso 10 mg 17:24: mouth n tablet 18 daily. multivitami 2016-04 Yes 1{capsu Take 1 M D n capsule 1-13 le} capsule by [place] rso 17:24: mouth n 18 daily. glucosamine 2016-04 Yes 3{tbl} Take 3 MD -chondroiti 1-13 tablets by An derso n 500-400 17:24: mouth n mg tablet 18 daily. ascorbic 2016-04 Yes 1000mg Take 1,000 M D acid, 1-13 mg by Anderso vitamin C, 17:24: mouth. n (vitamin C) 18 1000 mg tablet aspirin 325 2016-04 Yes 325mg Take 325 M D mg tablet 1-13 mg by Anderso 17:24: mouth n 18 twice daily. TURMERIC 2016-04 Yes 1{capsu Take 1 MD ROOT 1-13 le} capsule by [place] EXTRACT 17:24: mouth n ORAL 18 daily. fish 2016-04 Yes 2g Take 2 g MD oil-omega-3 1-13 by mouth [place] fatty acids 17:24: daily. n 300-1,000 18 mg capsule Saccharomyc 2016-04 Yes 250mg Take 250 M D es 1-13 mg by Anderso botaylordii 17:24: mouth n (PROBIOTIC, 18 daily. S.BOULARDII ,) 250 mg capsule ginkgo 2016-04 Yes 1{capsu Take 1 MD biloba 60 1-13 le} capsule by [place] mg cap 17:24: mouth n 18 daily. dutasteride 2016-04 Yes Adenocarcin .5mg Take 1 MD (AVODART) 1-06 laura of capsule Jovany so 0.5 mg 00:00: prostate (0.5 mg) n capsule 00 by mouth daily. EDEX 20 mcg Yes 1{dose} 1 Dose by MD injection 08 intracavit [place] rso 00:00: y route as n 00 needed. Reported on 09/03/2016 Procedures This patient has no known procedures. Plan of Care Planned Activity Planned Date Details Comments Source Future Scheduled 2020-11-03 INFLUENZA VACCINE [place] [facility] Test 00:00:00 [code = INFLUENZA VACCINE] Future Scheduled 1998 COLONOSCOPY SCREENING [place] [facility] Test 00:00:00 [code = COLONOSCOPY SCREENING] Future Scheduled 1998 SHINGLES VACCINES [place] [facility] Test 00:00:00 (#1) [code = SHINGLES VACCINES (#1)] Future Scheduled 1966 Hepatitis C screening [place] [facility] Test 00:00:00 (procedure) [code = 950283000] Future Scheduled 1960 COVID-19 VACCINE (1) Magaly ston Yarsani Test 00:00:00 [code = COVID-19 VACCINE (1)] Encounters Start End Encounter Admission Attending Care Care Encounter Source Date/Time Date/Time Type Type Clinicians Facility Department ID 2019-09-04 2019-09-[address] 07:14:00 07:14:00 ed [facility] 2019-05-27 2019-05-28 [id number] [address] [place] 00:00:00 00:00:[address] [place] [address] Results This patient has no known results.
[2020-10-15 11:59] LABS: Absolute Lymphocytes (CBC) 0.9 K/uL (0.7-4.9); Hematocrit 36.6 % (39.6-49.0); Lymphocytes % 10.2 % (15.3-44.8); MPV 8.2 fL (7.6-11.3); RBC Red Blood Cell Count 3.74 M/uL (4.33-5.43)
[2020-10-15 12:07] LABS: Protime INR 0.97
[2020-10-15] MEDS ORDERED: FENTANYL CITR 100 MCG/2 ML ONE ×2 (12:08→13:03)
[2020-10-15 12:11] LABS: BUN Blood Urea Nitrogen 24 mg/dL (7-18); Bicarbonate 25 mmol/L (21-32); Glucose Level 143 mg/dL (74-106); Sodium Level 130 mmol/L (136-145)
--- NOTE | 2020-10-15 12:24 | RAD REPORT ---
EXAM DESCRIPTION: CT - Chest Abdomen Pelvis W Cont - 10/15/2020 12:04 pm CLINICAL HISTORY: Chest and abdominal pain status post fall COMPARISON: CT abdomen 2011 TECHNIQUE: Computed axial tomography of the chest, abdomen and pelvis was obtained. 100 cc Isovue-30 0 was administered intravenously. Oral contrast was not requested. This limits evaluation of bowel. All CT scans are performed using dose optimization technique as appropriate and may include automated exposure control or mA/KV adjustment according to patient size. FINDINGS: Mildly displaced fractures anterior right fifth and sixth ribs. A pneumothorax is not seen. A pulmonary contusion is not noted. A pleural effusion is not present. A mediastinal hematoma is not present. A 5.4 centimeter fluid collection anterior right shoulder. This is unlikely to be related to acute tr auma. If clinically indicated nonemergent MRI could be obtained The liver, spleen, pancreas, adrenals, kidneys and bladder do not demonstrate a traumatic injury. Fatty liver. Postsurgical changes involve the lumbar spine IMPRESSION: Mildly displaced fractures anterior right fifth and six ribs
--- NOTE | 2020-10-15 13:19 | ER ---
Nurse's Notes [facility] Name: Carter Mahan Age: 70 yrs Sex: Male : 1950 Arrival Date: 10/15/2020 Time: 11:09 Bed 16 Private MD: Diagnosis: Multiple fractures of ribs, right side Presentation: 10/15 11:18 Chief complaint: Right sided chest wall and right flank pain after mechanical fall from standing 2 days ago. Bruising noted to right fank. Coronavirus screen: At this time, the client does not indicate any symptoms associated with coronavirus-19. Ebola Screen: No symptoms or risks identified at this time. Initial Sepsis Screen: Does the patient meet any 2 criteria? No. Patient's initial sepsis screen is negative. Does the patient have a suspected source of infection? No. Patient's initial sepsis screen is negative. Risk Assessment: Do you want to hurt yourself or someone else? Patient reports no desire to harm self or others. Onset of symptoms was October 13, 2020. 11:18 Method Of Arrival: Ambulatory 11:18 Acuity: MILADY 4 hb Historical: - Allergies: 11:20 No Known Allergies; hb - Home Meds: 11:20 atorvastatin Oral [Active]; carvedilol Oral [Active]; losartan Oral [Active]; Myrbetriq hb Oral [Active]; clonidine HCl 0.1 mg Oral tab as needed [Active]; - PMHx: 11:20 carpal tunnel syndrome; Hyperlipidemia; Hypertension; Prostate Cancer; spinal stenosis; hb - Immunization history:: Adult Immunizations up to date. - Social history:: Smoking status: Patient denies any tobacco usage or history of. Screenin:27 Abuse screen: Denies threats or abuse. Denies injuries from another. Nutritional tr6 screening: No deficits noted. Tuberculosis screening: No symptoms or risk factors identified. Fall Risk Fall in past 12 months (25 points). Assessment: 13:20 General: Appears uncomfortable, well groomed, Behavior is calm, cooperative, tr6 appropriate for age. Pain: Complains of pain in right flank. Neuro: No deficits noted. Cardiovascular: No deficits noted. Respiratory: Reports shortness of breath due to fall pt has a difficult time taking a deep breath because of his increased pain. GI: No deficits noted. : No deficits noted. EENT: No deficits noted. Derm: Skin is fragile, Skin is Bruising that is dark purple. Musculoskeletal: No deficits noted. 13:28 Reassessment: IS teaching completed with pt at bedside. pt verbalized and demonstrated tr6 understanding. Vital Signs: 11:18 BP 147 / 86; Pulse 73; Resp 16; Temp 97.3; Pulse Ox 97% on R/A; Weight 83.01 kg; Height hb 6 ft. 1 in. (185.42 cm); Pain 7/10; 11:18 Body Mass Index 24.14 (83.01 kg, 185.42 cm) hb ED Course: 11:09 Patient arrived in ED. rg4 11:12 Naif Ramirez PA is PHCP. cp 11:12 Clif Green MD is Attending Physician. cp 11:20 Triage completed. hb 11:20 Arm band placed on. hb 11:29 Cherie Bowers, RN is Primary Nurse. tr6 11:44 Initial lab(s) drawn, by wa, sent to lab. T\T\S collected, blood band applied to patient. dh3 Inserted saline lock: 20 gauge in left forearm, using aseptic technique. Blood collected. 12:04 CT Chest, Abdomen, Pelvis - W/Contrast In Process Unspecified. EDMS 12:48 INCENTIVE SPIROMETRY Sent. tr6 13:27 Patient has correct armband on for positive identification. Fall risk band placed. Bed tr6 in low position. Call light in reach. Side rails up X 1. Pulse ox on. NIBP on. Door closed. Noise minimized. Visitors limited. Lights dimmed. 13:27 No provider procedures requiring assistance completed. IV discontinued, intact, tr6 bleeding controlled, No redness/swelling at site. Pressure dressing applied. Patient maintains SpO2 saturation greater than 95% on room air. Administered Medications: 11:50 Drug: fentaNYL (PF) 25 mcg Route: IVP; Site: right forearm; tr6 13:28 Follow up: Response: No adverse reaction tr6 12:47 Drug: fentaNYL (PF) 25 mcg Route: IVP; Site: left forearm; tr6 13:28 Follow up: Response: No adverse reaction tr6 Outcome: 13:18 Discharge ordered by . cp 13:37 Patient left the ED. tr6 Signatures: Dispatcher [employer] EDMS Naif Ramirez PA PA cp Baxter, Renata, RN RN hb Melonie Hanson rg4 Tania North 3 Cherie Bowers RN RN tr6
--- NOTE | 2020-10-15 13:19 | EDPHYS ---
Physician Documentation [facility] Name: Carter Mahan Age: 70 yrs Sex: Male : 1950 Arrival Date: 10/15/2020 Time: 11:09 Bed 16 Private MD: ED Physician Clif Green HPI: 10/15 11:35 This 70 yrs old Male presents to ER via Ambulatory with complaints of Fall cp Injury. 11:35 Details of fall: The patient fell from an upright position, while walking, and struck concrete steps. 11:35 Onset: The symptoms/episode began/occurred last night. Associated injuries: The patient cp sustained injury to the chest, specifically the right lateral anterior chest and right lateral posterior chest, contusion, ecchymosis, pain with breathing, pain with movement, tenderness, injury to the abdomen, specifically the anterior aspect of right lateral abdomen and posterior aspect of right lateral abdomen, abrasion, contusion, ecchymosis. 11:35 Severity of symptoms: in the emergency department the symptoms are unchanged, despite cp home interventions. Historical: - Allergies: 11:20 No Known Allergies; hb - Home Meds: 11:20 atorvastatin Oral [Active]; carvedilol Oral [Active]; losartan Oral [Active]; Myrbetriq hb Oral [Active]; clonidine HCl 0.1 mg Oral tab as needed [Active]; - PMHx: 11:20 carpal tunnel syndrome; Hyperlipidemia; Hypertension; Prostate Cancer; spinal stenosis; hb - Immunization history:: Adult Immunizations up to date. - Social history:: Smoking status: Patient denies any tobacco usage or history of. ROS: 11:40 Constitutional: Negative for body aches, chills, fever, poor PO intake. cp 11:40 Eyes: Negative for injury, pain, redness, and discharge. cp Exam: 11:45 Constitutional: The patient appears in no acute distress, alert, awake, cp non-diaphoretic, non-toxic, well developed, well nourished, uncomfortable. 11:45 Head/Face: Normocephalic, atraumatic. cp 11:45 Eyes: Periorbital structures: appear normal, Conjunctiva: normal, no exudate, no injection, Sclera: no appreciated abnormality, Lids and lashes: appear normal, bilaterally. 11:45 Neck: C-spine: vertebral tenderness, is not appreciated, crepitus, is not appreciated, ROM/movement: is normal, is supple, without pain, no range of motions limitations. 11:45 Chest/axilla: Inspection: ecchymosis, that is mild, of the right lateral anterior chest and right lateral posterior chest Palpation: crepitus, is not appreciated, tenderness, that is severe, of the right lateral anterior chest and right lateral posterior chest. 11:45 Cardiovascular: Rate: normal, Rhythm: regular, JVD: is not appreciated. 11:45 Respiratory: the patient does not display signs of respiratory distress, Respirations: normal, no use of accessory muscles, no retractions, labored breathing, is not present, Breath sounds: are clear throughout, no decreased breath sounds, no stridor, no wheezing. 11:45 Abdomen/GI: Inspection: bruising, anterior aspect of right lateral abdomen, posterior aspect of right lateral abdomen and right lower quadrant, distension, is not seen, Bowel sounds: active, all quadrants, Palpation: soft, in all quadrants, moderate abdominal tenderness, in the anterior aspect of right lateral abdomen, posterior aspect of right lateral abdomen and right lower quadrant, rebound tenderness, is not appreciated, involuntary guarding, is not appreciated. 11:45 Back: vertebral tenderness, is not appreciated. 11:45 Neuro: Orientation: to person, place \T\ time. Mentation: is normal, Motor: moves all fours, strength is normal. Vital Signs: 11:18 BP 147 / 86; Pulse 73; Resp 16; Temp 97.3; Pulse Ox 97% on R/A; Weight 83.01 kg; Height hb 6 ft. 1 in. (185.42 cm); Pain 7/10; 11:18 Body Mass Index 24.14 (83.01 kg, 185.42 cm) hb MDM: 11:18 Patient medically screened. cp 12:00 Differential diagnosis: closed head injury, contusion, fracture, laceration, multiple cp trauma. 13:18 Data reviewed: vital signs, nurses notes, lab test result(s), radiologic studies, CT cp scan. 13:18 Counseling: I had a detailed discussion with the patient and/or guardian regarding: the cp historical points, exam findings, and any diagnostic results supporting the discharge/admit diagnosis, lab results, radiology results, the need for outpatient follow up, a family practitioner, to return to the emergency department if symptoms worsen or persist or if there are any questions or concerns that arise at home. Response to treatment: the patient's symptoms have markedly improved after treatment, VSS. Pain markedly improved. Oxygen sats 97% on RA and no signs of respiratory distress. Will discharge to home for continued monitoring. 10/15 11:27 Order name: Basic Metabolic Panel; Complete Time: 12:21 10/15 12:21 Interpretation: Normal except: NA 130; CL 94; GLUC 143; BUN 24. 10/15 11:27 Order name: CBC with Diff; Complete Time: 12:21 10/15 12:21 Interpretation: Normal except: RBC 3.74; HGB 12.6; HCT 36.6; DULCE% 80.5; LYM% 10.2. 10/15 11:27 Order name: CT Chest, Abdomen, Pelvis - W/Contrast; Complete Time: 12:26 10/15 12:27 Interpretation: Report reviewed. 10/15 11:27 Order name: PT-INR; Complete Time: 12:21 10/15 12:28 Order name: INCENTIVE SPIROMETRY 10/15 11:27 Order name: Labs collected and sent; Complete Time: 11:49 cp Administered Medications: 11:50 Drug: fentaNYL (PF) 25 mcg Route: IVP; Site: right forearm; tr6 13:28 Follow up: Response: No adverse reaction tr6 12:47 Drug: fentaNYL (PF) 25 mcg Route: IVP; Site: left forearm; tr6 13:28 Follow up: Response: No adverse reaction tr6 Disposition: 18:39 Co-signature as Attending Physician, Clif Green MD. rn Disposition Summary: 10/15/20 13:18 Discharge Ordered Location: Home cp Problem: new cp Symptoms: have improved cp Condition: Stable cp Diagnosis - Multiple fractures of ribs, right side cp Followup: cp - With: Private Physician - When: 2 - 3 days - Reason: Recheck today's complaints Discharge Instructions: - Discharge Summary Sheet cp - Rib Fracture cp - How to Use an Incentive Spirometer cp Forms: - Medication Reconciliation Form cp - Thank You Letter cp - Antibiotic Education cp - Prescription Opioid Use cp Prescriptions: - Ultracet 37.5-325 mg Oral Tablet - take 1 tablet by ORAL route every 6 hours - for up to 5 days; do not exceed 8 cp tablets per day.; 20 tablet; Refills: 0, Product Selection Permitted Signatures: Dispatcher [employer] Clif Aguilera MD MD rn Page, Corey, PA PA cp Baxter, Heather RN RN Cherie Bowers RN RN tr6
[2020-10-15 14:26] VITALS: BP 147/86; TEMP 97.3; O2SAT 97
== END 2020-10-15 13:37 | disposition home or self-care (01) ==
LOC: ER 11:08
DX: S22.41XA Multiple fractures of ribs, right side, initial encounter for closed fracture (principal); W04.XXXA Fall while being carried or supported by other persons, initial encounter; Y93.01 Activity, walking, marching and hiking; I10 Essential (primary) hypertension; E78.5 Hyperlipidemia, unspecified
CPT/HCPCS: 85025; 80048; 36415; 85610; 82565; 71260; 74177; Q9967; J3010 ×2; 99284

== ENCOUNTER 2021-12-02 19:13 | Emergency (ER) | payer OTHER ==
--- OUTSIDE RECORDS SUMMARY | 2021-12-02 19:15 | XMS REPORT | Clinical Summary ---
:1950 Author Organization [facility] MD [facility] Address [address] [place] [address] Care Team Providers Name Role Phone Clifford Zapien MD Unavailable Clifford Zapien MD Primary Care Provider Allergies No known active allergies Medications Medication Sig Dispensed Refills Start Date End Date Status atorvastatin Take 1 tablet by 0 Active (LIPITOR) 10 mg mouth daily. tablet EDEX 20 mcg injection 1 Dose by 3 06/10/2016 Active intracavity route as needed. Reported on 09/03/2016 multivitamin capsule Take 1 capsule by 0 Active mouth daily. glucosamine-chondroit Take 3 tablets by 0 Active in 500-400 mg tablet mouth daily. ascorbic acid, Take 1,000 mg by 0 Active vitamin C, (vitamin mouth. C) 1000 mg tablet aspirin 325 mg tablet Take 325 mg by 0 Active mouth twice daily. TURMERIC ROOT EXTRACT Take 1 capsule by 0 Active ORAL mouth daily. fish oil-omega-3 Take 2 g by mouth 0 Active fatty acids 300-1,000 daily. mg capsule Saccharomyces Take 250 mg by 0 A ctive boulardii (PROBIOTIC, mouth daily. S.BOULARDII,) 250 mg capsule ginkgo biloba 60 mg Take 1 capsule by 0 Active cap mouth daily. dutasteride (AVODART) Take 1 capsule 30 capsule 1 02/08/2017 Active 0.5 mg (0.5 mg) by mouth capsuleIndications: daily. Adenocarcinoma of prostate carvedilol (COREG) ONE TABLET ORALLY 1 03/14/2017 Active 6.25 mg TWICE A DAY. tabletIndications: Adenocarcinoma of prostate losartan (COZAAR) 100 TAKE 1 TABLET BY 1 03/15/2017 Active mg tabletIndications: MOUTH EVERY DAY Adenocarcinoma of prostate triamterene-hydrochlo TAKE 1 TABLET BY 5 04/08/2017 Active rothiazide (DYAZIDE) MOUTH ONCE A DAY 37.5 mg-25 mg per IN THE AM capsuleIndications: Adenocarcinoma of prostate Active Problems Problem Noted Date Adenocarcinoma of prostate 08/18/2016 Elevated prostate specific antigen (PSA) 08/18/2016 Essential (primary) hypertension 08/18/2016 Hypercholesterolemia 08/18/2016 Male erectile dysfunction 08/18/2016 Condylomata rei of penis 08/18/2016 Surgical History Surgery Date Site/Laterality Comments PROSTATECTOMY RADICAL 04/05/2004 - 04/04/2005 BIOPSY PROSTATE/ULTRASOUND 04/05/2003 - TRANSRECTAL 04/04/2004 KNEE SURGERY 04/05/1978 - Left athroscopy due t o 04/04/1979 injury COLONOSCOPY 04/05/2009 - 04/04/2010 CYSTOURETHROSCOPY 05/30/2013 with excision of condylomata arou nd meatus Medical History Medical History Date Comments Adenocarcinoma of prostate [place] 6 (3+ 3); performed winter 2003 Hypertension Hypercholesterolemia Condylomata rei of penis Male erectile dysfunction Worsened post prostatectomy Herpes simplex during times of stre ss Family History Medical History Relation Name Comments Breast cancer Maternal Aunt 1 Lung cancer Maternal Aunt 2 Cancer Maternal Grandmother Intestinal Dementia Mother Relation Name Status Comments Maternal Aunt 1 Maternal Aunt 2 Maternal Grandmother Mother (Age 82) Social History Tobacco Use Types Packs/Day Years Used Date Former Smoker Cigars, Cigarettes 0.3 20 Smokeless Tobacco: Never Used Alcohol Use Standard Drinks/Week Comments Yes 28 (1 standard drink = 0.6 oz pure alcoh ol) Sex Assigned at Date Recorded Not on file Obstetrics History Last Filed Vital Signs Not on file Plan of Treatment Health Maintenance Due Date Last Done Comments COVID-19 Vaccination (#1) 02/14/1951 Results Not on fileafter 12/02/2020 Insurance Payer Benefit Plan / Subscriber ID Effective Dates Phone Addre ss Type Group AETNA MEDICARE AETNA MEDICARE [id number] 2013-Valerie TUTTLE [id number] [place] [address] Carter Mahan Personal/Famil Self 1950 [phone] [place] [address] Carter Mahan Personal/Famil Self 1950 [phone] [place] [address] Care Teams 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 [address] [place] [address] Clifford Zapien MD PCP - General 11/18/[id number] [facility] [address] [place] [address]
--- OUTSIDE RECORDS SUMMARY | 2021-12-02 19:16 | XMS REPORT | Continuity of Care Document ---
:1950 Author Organization [facility] t Address [address] [place] [address] Care Team Providers Name Role Phone Pcp, Patient Does Not Have A Primary Care Physician [phone] Lapin_S Attending Clinician Unavailable Clifford Zapien Attending Clinician [phone] Rik RN, Tracy Govea Attending Clinician Unavailable DEIDRA ABBASI Attending Clinician Unavailable Only, Ang Db Test Attending Clinician Unavailable Deidra Spicer Attending Clinician YASMANY LAUGHLIN Attending Clinician Unavailable TAWANA OWEN Attending Clinician Unavailable Lapin_S Admitting Clinician Unavailable LONNIE QUIROZ Admitting Clinician Unavailable Payers Payer Name Policy Type Policy Number Effective Date Expiration Date S aly [employer] (MEDICARE [id number] 2021 REPLACEMENT PPO) 00:00:00 Problems Condition Condition Condition Status Onset Resolution Last Treating Co mments Source Name Details Category Date Date Treatment Clinician Date Gross Gross Disease Active [facility] hematuria hematuria 05-27 00:00: Hospita 00 l Hematuria Hematuria Disease Active Met hodi 05-27 00:00: Hospita 00 l Degenerati Degenerati Disease Active 2018- M ethodi ve disc ve disc 08-11 disease, disease, 00:00: Hospit a lumbar lumbar 00 l S/P S/P Disease Active 2017-04 [facility] cervical cervical 2-07 st spinal spinal 00:00: Hospita fusion fusion 00 l Degenerati Degenerati Disease Active M ethodi ve ve 9- st cervical cervical 00:00: Hospit a spinal spinal 00 l stenosis stenosis Spinal Spinal Disease Active [facility] stenosis stenosis 9-21 st of lumbar of lumbar 00:00: Hosp [place] region region 00 l with with neurogenic neurogenic claudicati claudicati on on DDD DDD Disease Active Methodi (degenerat (degenerat 9-06 st mavis disc mavis disc 00:00: Hospit a disease), disease), 00 l cervical cervical DDD DDD Disease Active Methodi (degenerat (degenerat 9-06 st mavis disc mavis disc 00:00: Hospit a disease), disease), 00 l lumbar lumbar Left leg Left leg Disease Active Metho di pain pain 12-09 st 00:00: Hospita 00 l Right hand Right hand Disease Active M ethodi pain pain 12-09 st 00:00: Hospita 00 l 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 5-16 ity of prostate prostate 00:00: [place] 00 MD Arzate [facility] [place] Elevated Elevated Disease Active Unive rs prostate prostate 5-16 ity of specific specific 00:00: [place] antigen antigen 00 (PSA[facility] [place] Essential Essential Disease Active Uni vers (primary) (primary) 5-16 it[place] of hypertensi [place] [facility] Hyperchole Hyperchole Disease Active U nivers sterolemia sterolemia 5-16 it y of 00:00: [place] 00 MD [facility] Male Male Disease Active Univers erectile erectile 5-16 ity of dysfunctio dysfunctio [place] Arzate [facility] Condylomat Condylomat Disease Active U nivers a rei of a rei of 5-16 ity of penis penis 00:00: [place] 00 MD [facility] Allergies, Adverse Reactions, Alerts Allergy Allergy Status Severity Reaction(s) Onset Inactive Treating Comm ents Source Name Type Date Date Clinician Pollen Propensi Active Methodi Extracts ty to 08-05 st adverse 00:00: Hospita reaction 00 l s to drug Mold Propensi Active Methodi ty to 04-05 st adverse 00:00: Hospita reaction 00 l s to drug NO KNOWN Drug Active Univers ALLERGIE Class ity of S [facility] Family History Family Member Diagnosis Comments Start Date Stop Date Source Maternal aunt Breast cancer [facility] Maternal aunt Lung cancer [facility] [place] [facility] Maternal grandmother Cancer [facility] Natural mother Dementia [facility] Natural mother [facility] failure [facility] Social History Social Habit Start Date Stop Date Quantity Comments Source History of tobacco Cigar Smoker Meth odist use Hospital Exposure to Not sure University of SARS-CoV-2 (event) [facility] Alcohol intake 2018-08-15 2018-08-15 Current drinker [facility] dist 00:00:00 00:00:00 of alcohol Hospital (finding) Cigarettes smoked 2018-03-11 2018-03-[address] current (pack per 00:00:00 00:00:00 Hospita l day) - Reported Cigarette 2018-03-11 2018-03-11 [facility] pack-years 00:00:00 00:00:00 Hospital Tobacco Comment 2018-03-07 2018-03-07 cigar - 1/day Method ist 00:00:00 00:00:00 also quit 20 Hospital years ago Alcohol Comment 2018-03-07 2018-03-07 1 bottle of Methodis t 00:00:00 00:00:00 wine/day - Hospital approx 28 servings per week Tobacco use and 2016-08-19 2016-08-19 Smokeless Universit y of exposure 00:00:00 00:00:00 tobacco non-user [facility] Sex Ass[birth year] At [birth year] [facility] 00:00:00 00:00:00 Hospital Smoking Status Start Date Stop Date Source Unknown [facility] Ex-smoker 2018-03-11 00:00:00 2018-03-11 00:00:00 [facility] Hospital Medications Ordered Filled Start Stop Current Ordering Indication Dosage Frequency Signature Comments Components Source Medication Medication Date Date Medication? Clinician (SIG) Name Name vit C/vit 2020-0 Yes 1{tbl} QD Take 1 Meth alisa E/lutein/mi 2-[address] n/omega-3 12:48: mouth Hospita (OCUVITE 17 daily. l ORAL) Lactobacill 2020-0 Yes 2{capsu QD Take 2 M ethodi us 2-23 le} capsules st acidophilus 12:48: by mouth Ho spita (PROBIOTIC 17 daily. l ORAL) ascorbate 2020-0 Yes 1000mg QD Take 1,000 Methodi calcium 2-[address] (VITAMIN C 12:48: mouth Hospit a ORAL) 17 daily. l diphenhydrA 2019-0 Yes 25mg Take 25 mg [facility]i MINE 2-[address] (BENADRYL) 12:48: as needed Ho spita 25 mg 17 for l tablet allergies. mirabegron 2019-0 Yes 50mg QD Take 50 mg M ethodi (MYRBETRIQ) 2-[address] 50 mg 12:48: every Hospita tablet 17 morning. l extended release 24 hr multivitami 2019-0 Yes 1{tbl} QD Take 1 Me thodi n with 2-[address] minerals 12:48: mouth Hospita tablet 17 daily. l glucosam/ch 2019-0 Yes 3{tbl} QD Take 3 Me thodi ond/msm/bor 2-[address] on/hyal 12:48: mouth Hospita (GLUCOSAMIN 17 daily. l E-CHONDR, MSM-HYAL, ORAL) carvedilol 2017-0 Yes 12.5mg Q.5D Take 12.5 Methodi (COREG) 8-[address] 12.5 MG 00:00: mouth 2 Hospita tablet 00 (two) l times a day. atorvastati 2017-0 Yes 10mg QD Take 10 mg Methodi n (LIPITOR) 6-[address] 10 MG 00:00: nightly. Hospita tablet 00 l losartan 2017-0 Yes 100mg QD Take 100 Meth alisa (COZAAR) 6-[address] 100 MG 00:00: mouth Hospita tablet 00 nightly. l triamterene 2017- Yes Adenocarcin TAKE 1 Univers -hydrochlor 1-04 laura of TABLET BY i ty of othiazide 00:00: prostate MOUTH ONCE [place] (DYAZIDE) 00 A DAY IN 37.5 mg-25 THE AM Anderso mg per n capsule [facility] [place] losartan 2016-04 Yes Adenocarcin TAKE 1 Univers (COZAAR) 2-11 laura of TABLET BY ity of 100 mg 00:00: prostate MOUTH [place] tablet 00 EVERY DAY [facility] dahiana [facility] carvedilol 2016-04 Yes Adenocarcin ONE TABLET Univers (COREG) 2-10 laura of ORALLY ity of 6.25 mg 00:00: prostate TWICE A Tejinder as tablet 00 DAY. MD [facility] atorvastati 2016-04 Yes 1{tbl} Take 1 Un rogelio n (LIPITOR) 1-13 tablet by ity of 10 mg 11:24: mouth [place] tablet 18 daily. MD [facility] multivitami 2016-04 Yes 1{capsu Take 1 U nivers n capsule 1-13 le} capsule by ity of 11:24: mouth [place] 18 daily. MD [facility] glucosamine 2016-04 Yes 3{tbl} Take 3 Un rogelio -chondroiti 1-13 tablets by it y of n 500-400 11:24: mouth [place] mg tablet 18 daily. MD [facility] ascorbic 2016-04 Yes 1000mg Take 1,000 U nivers acid, 1-13 mg by ity of vitamin C, 11:24: mouth. [place] (vitamin C) 18 MD 1000 mg [facility] tablet [facility] aspirin 325 2016-04 Yes 325mg Take 325 U nivers mg tablet 1-13 mg by ity of 11:24: mouth [place] 18 twice [facility]. [facility] 2016-04 Yes 1{capsu Take 1 Univ ers ROOT 1-13 le} capsule by ity of EXTRACT 11:24: mouth [place] ORAL 18 daily. MD [facility] fish 2016-04 Yes 2g Take 2 g Univers oil-omega-3 1-13 by mouth ity of fatty acids 11:24: daily. [place] 300-1,000 18 MD mg capsule [facility] Saccharomyc 2016-04 Yes 250mg Take 250 U nivers es 1-13 mg by ity of boulardii 11:24: mouth [place] (PROBIOTIC, 18 daily. MD NAZ Arzate ,) 250 mg n capsule [facility] ginkgo 2016-04 Yes 1{capsu Take 1 Univer s biloba 60 -13 le} capsule by ity of mg cap 11:24: mouth [place] 18 daily. MD [facility] dutasteride 2016-04 Yes Adenocarcin .5mg Take 1 Univers (AVODART) 06 laura of capsule ity o f 0.5 mg 00:00: prostate (0.5 mg) Tejinder as capsule 00 by mouth daily. [facility] EDEX 20 mcg Yes 1{dose} 1 Dose by Univers injection 08 intracavit ity of 00:00: y route as [place] 00 needed. Reported [facility] on n 09/03/2016 Cancer Center Procedures This patient has no known procedures. Plan of Care Planned Activity Planned Date Details Comments Source Future Scheduled 2021-12-02 HEPATITIS B VACCINES Met [facility] Test 16:49:32 (1 of 3 - 3-dose series) [code = HEPATITIS B VACCINES (1 of 3 - 3-dose series)] Future Scheduled 2021-12-02 COVID-19 VACCINE (#1) [facility] Test 16:49:32 [code = COVID-19 VACCINE (#1)] Future Scheduled 2021-12-02 Hepatitis C screening [facility] Test 16:49:32 (procedure) [code = [id number]] Future Scheduled 2021-12-02 COLONOSCOPY SCREENING [facility] Test 16:49:32 [code = COLONOSCOPY SCREENING] Future Scheduled 2021-12-02 SHINGLES VACCINES (1 Met [facility] Test 16:49:32 of 2) [code = SHINGLES VACCINES (1 of 2)] Future Scheduled 2021-12-02 INFLUENZA VACCINE [facility] Test 16:49:32 [code = INFLUENZA VACCINE] Future Scheduled 2021-10-08 COVID-19 Vaccination Uni [facility] [place] Test 05:03:43 (#1) [code = COVID-19 [facility] Vaccination (#1)] Center Encounters Start End Encounter Admission Attending Care Care Encounter Source Date/Time Date/Time Type Type Clinicians Facility Department ID 2021-05-07 2021-05-07 Outpatient Lapin_S [facility] [id number] 03:29:00 03:29:00 [facility] 2021-04-25 2021-04-25 Outpatient Lapin_S [facility] HMU [id number] [place] 11:31:00 11:31:00 [facility] 2021-04-24 2021-04-24 Outpatient Lapin_S [facility] HMU [id number] [place] 04:16:00 04:16:00 [facility] 2021-04-24 2021-04-24 Outpatient Lapin, [facility]U [id number] 00:00:00 00:00:00 Clifford [id number] Nash [id number] 2021-02-16 2021-02-16 Outpatient Lapin_S [facility]U HMU [id number] [place] 12:43:00 12:43:00 [id number] [facility] 2021-02-06 2021-02-06 Outpatient Lapin_S HMU HMU [id number] [place] 12:07:00 12:07:00 [id number] [facility] 2021-02-05 2021-02-05 Outpatient Lapin_S HMU HMU [id number] [place] 10:13:00 10:13:00 [id number] [facility] 2021-02-04 2021-02-04 Outpatient Lapin_S HMU HMU [id number] [place] 04:31:00 04:31:00 [id number] [facility] 2021-02-04 2021-02-04 Outpatient Lapin, HMU HMU [id number] 00:00:00 00:00:00 Clifford [id number] [id number] 2020-12-18 2020-12-18 Outpatient Lapin_S HMU HMU [id number] [place] 09:58:00 09:58:00 [id number] [facility] 2020-12-16 2020-12-16 Outpatient Lapin_S HMU HMU [id number] [place] 10:09:00 10:09:00 [id number] [facility] 2020-12-16 2020-12-16 Letter VIDAL Jolly [id number] Univers 00:00:00 00:00:00 (Out) Tracy Govea ALESHA [id number] it y of [facility] [id number] Tejinder as [id number] [address] 2020-12-16 2020-12-16 Outpatient Lapin, U [facility] [id number] 00:00:00 00:00:00 Clifford [id number] Nash [id number] 2020-12-15 2020-12-15 Outpatient R [facility] [id number] Univers 16:15:00 16:15:00 [id number] [facility] 2020-12-15 2020-12-15 [id number] Univers 16:15:00 16:15:00 [facility] 2020-12-15 2020-12-15 Laboratory Only, Ang Db Test [facility] [id number] Univers 15:06:49 15:21:49 [id number] [id number] Tejinder as Jeremiah?Blea [id number] [address] [facility] 2020-12-06 2020-12-06 Outpatient Lapin_S [facility] [id number] 12:56:00 12:56:00 [id number] [facility] 2019-09-04 2019-09-05 [facility] [id number] 07:14:00 15:50:00 [facility] 2019-05-27 2019-05-[address] [id number] [address] 00:00:00 00:00:00 TAWANA [address] Results This patient has no known results.
[2021-12-02] MEDS ORDERED: FAMOTIDINE 20 MG/2 ML VIAL IV ONE (19:54)
[2021-12-02] MEDS ORDERED: THIAMINE 200 MG/2 ML INJ ONE (19:54)
[2021-12-02] MEDS ORDERED: MULTIVITAMINS 10 ML VIAL (INJ) IV ONE (19:54)
[2021-12-02] MEDS ORDERED: NA CHLORIDE 0.9% 1,000 ML ONE (19:54)
[2021-12-02] MEDS ORDERED: FOLIC ACID 5 MG/ML VIAL ONE (19:56)
[2021-12-02 20:08] LABS: Absolute Lymphocytes (CBC) 2.6 K/uL (0.7-4.9); Hematocrit 44.1 % (39.6-49.0); Lymphocytes % 26.8 % (15.3-44.8); MCV 95.2 fL (80-100); MPV 7.3 fL (7.6-11.3); RBC Red Blood Cell Count 4.64 M/uL (4.33-5.43)
[2021-12-02 20:10] LABS: Protime INR 0.93
[2021-12-02 20:10] LABS: Urine Blood Trace-intact (Negative); Urine Glucose Negative (Negative); Urine Protein Negative (Negative)
[2021-12-02 20:24] LABS: ALT/SGPT 34 U/L (12-78); AST/SGOT 33 U/L (15-37); Albumin 3.7 g/dL (3.4-5.0); Alkaline Phosphatase 64 U/L (45-117); BUN Blood Urea Nitrogen 12 mg/dL (7-18); Bicarbonate 22 mmol/L (21-32); Bilirubin Direct 0.1 mg/dL (0-0.2); Bilirubin Total 0.4 mg/dL (0.2-1.0); Glomerular Filtration Rate 98 ml/min (=/>90); Glucose Level 81 mg/dL (74-106); NT PRO-BNP 40 pg/mL (<125); Potassium 3.9 mmol/L (3.5-5.1); Protein, Total 7.4 g/dL (6.4-8.2); Sodium Level 136 mmol/L (136-145); Troponin High Sensitivity 8.9 pg/mL (<58.9)
[2021-12-02 20:25] LABS: Barbiturates NEGATIVE (NEGATIVE); Benzodiazepines NEGATIVE (NEGATIVE); Cocaine NEGATIVE (NEGATIVE); METHAMPHETAM NEGATIVE (NEGATIVE); Methadone NEGATIVE (NEGATIVE); Opiates NEGATIVE (NEGATIVE); Phencyclidine NEGATIVE (NEGATIVE); THC Cannibis NEGATIVE (NEGATIVE)
--- NOTE | 2021-12-02 20:40 | RAD REPORT ---
EXAM DESCRIPTION: RAD - Chest Single View - 12/02/2021 8:18 pm CLINICAL HISTORY: COUGH COMPARISON: Chest Pa And Lat (2 Views) dated 10/02/2021; Chest Pa And Lat (2 Views) dated 04/15/2020; Chest Single View dated 05/26/2019 FINDINGS: Lines: None. Lungs: No evidence of edema or pneumonia. Pleural: No significant pleural effusions or pneumothorax. Cardiac: The heart size is within normal limits. Mediastinum: Within normal limits. Bones: No acute fractures. Fusion hardware noted in the cervical spine. Other: None IMPRESSION: No acute cardiopulmonary disease.
--- NOTE | 2021-12-02 21:17 | ER ---
Nurse's Notes [facility] Name: Carter Mahan Age: 71 yrs Sex: Male : 1950 Arrival Date: 12/02/2021 Time: 19:16 Bed 8 Private MD: Diagnosis: Alcohol abuse with intoxication;Weakness Presentation: 12/02 19:17 Chief complaint: Patient states: "I just feel really tired" EMS states: "We were called vc1 out by his neighbors who claim he is altered. Pt states he has just been laying on the couch for the last 2-3 days staring at the light. No complaints of pain, he claims he did not fall but just feels really lethargic.". Coronavirus screen: Vaccine status: Patient reports receiving the 2nd dose of the covid vaccine. Moderna plus 2 boosters. fatigue, Client presents with at least one sign or symptom that may indicate coronavirus-19. Standard/surgical mask placed on the client. Provider contacted for isolation considerations. Ebola Screen: No symptoms or risks identified at this time. Initial Sepsis Screen: Does the patient meet any 2 criteria? No. Patient's initial sepsis screen is negative. Does the patient have a suspected source of infection? No. Patient's initial sepsis screen is negative. Risk Assessment: Do you want to hurt yourself or someone else? Patient reports no desire to harm self or others. Onset of symptoms is unknown. Care prior to arrival: Glucose check: 81. 19:17 Method Of Arrival: EMS: [facility] vc1 19:17 Acuity: MILADY 4 vc1 19:21 Note Admits to drinking 1/2 bottle of wine today. vc1 Triage Assessment: 19:21 General: Appears in no apparent distress. comfortable, Behavior is calm, cooperative, vc1 appropriate for age. Pain: Denies pain. EENT: No deficits noted. Neuro: Level of Consciousness is awake, alert, obeys commands, Oriented to person, place, situation, Unable to tell me today's date or what year it is. Patient can tell you who the president is.. Cardiovascular: Capillary refill < 3 seconds Patient's skin is warm and dry. Respiratory: Airway is patent Respiratory effort is even, unlabored, Respiratory pattern is regular. GI: No deficits noted. : No signs and/or symptoms were reported regarding the genitourinary system. Derm: No deficits noted. Musculoskeletal: No deficits noted. Historical: - Allergies: 19:21 No Known Allergies; vc1 - Home Meds: 19:21 carvedilol Oral [Active]; losartan Oral [Active]; vc1 - PMHx: 19:21 carpal tunnel syndrome; Hyperlipidemia; Hypertension; Prostate Cancer; spinal stenosis; vc1 - PSHx: 19:21 None; vc1 - Immunization history:: Adult Immunizations up to date, Client reports receiving the 2nd dose of the Covid vaccine. - Social history:: Smoking status: Patient denies any tobacco usage or history of. Patient uses alcohol, on a daily basis. 1-2 bottles of wine daily. - Family history:: not pertinent. Screenin:25 Abuse screen: Denies threats or abuse. Nutritional screening: Drinks daily; has not vc1 been eating. Tuberculosis screening: No symptoms or risk factors identified. Fall Risk None identified. Assessment: 22:00 Reassessment: Patient is alert, oriented x 3, equal unlabored respirations, skin bb warm/dry/pink. pt verbalized understanding of and agrees to plan of care discharge instructions given pt ambulated with steady gait to exit. Vital Signs: 19:17 BP 150 / 95; Pulse 80; Resp 10; Temp 98.5; Pulse Ox 97% on R/A; Weight 83.91 kg; Height vc1 6 ft. 0 in. (182.88 cm); Pain 0/10; 20:05 BP 153 / 92; Pulse 85; Resp 10; Pulse Ox 97% on R/A; vc1 22:01 BP 145 / 97; Pulse 86; Resp 14 S; Pulse Ox 98% on R/A; bb 19:17 Body Mass Index 25.09 (83.91 kg, 182.88 cm) vc1 ED Course: 19:16 Patient arrived in ED. mw2 19:16 Jennifer Campos RN is Primary Nurse. vc1 19:21 Triage completed. vc1 19:25 Naif Pop MD is Attending Physician. [facility] 19:26 Bed in low position. Call light in reach. Side rails up X2. Client placed on continuous vc1 cardiac and pulse oximetry monitoring. NIBP monitoring applied. 19:57 Inserted saline lock: 20 gauge in right forearm, using aseptic technique. Blood oe collected. 20:20 XRAY Chest (1 view) In Process Unspecified. EDMS 21:08 CT Head Brain wo Cont In Process Unspecified. EDMS 22:01 No provider procedures requiring assistance completed. IV discontinued, intact, bb bleeding controlled, No redness/swelling at site. Pressure dressing applied. Administered Medications: 19:58 Drug: Thiamine 100 mg Route: IV; Rate: per protocol; Site: right wrist; aa9 19:58 Drug: Banana Bag - (NS 0.9% 1000 ml, foLIC Acid 1 mg, Thiamine 100 mg, Multivitamin 1 aa9 amp) Route: IV; Rate: 500 ml/hr; Site: right wrist; 19:58 Drug: Pepcid (famotidine) 20 mg Route: IVP; Site: right wrist; aa9 Medication: 19:26 VIS not applicable for this client. vc1 Outcome: 21:17 Discharge ordered by . carlos 22:01 Discharged to home ambulatory. jeannie 22:01 Condition: stable 22:01 Discharge instructions given to patient, Instructed on discharge instructions, follow up and referral plans. medication usage, Demonstrated understanding of instructions, follow-up care, medications, Prescriptions given X 1. 22:02 Patient left the ED. bb Signatures: Dispatcher [employer] EDGA Naif Pop MD MD cha Ballard, Brenda, RN RN Rory Figueredo MyKena mw2 Jennifer Campos RN RN vc1 Sarah Webber, RN RN aa9
--- NOTE | 2021-12-02 21:18 | EDPHYS ---
Physician Documentation [facility] Name: Carter Mahan Age: 71 yrs Sex: Male : 1950 Arrival Date: 12/02/2021 Time: 19:16 Bed 8 Private MD: Naif Quiroz HPI: 12/02 19:31 This 71 yrs old Male presents to ER via EMS with complaints of alcohol ,abuse.carlos 19:31 weak, alcohol abuse. The patient presents with dizziness, generalized weakness. Onset: carlos The symptoms/episode began/occurred 2 day(s) ago. Context: occurred at home. Modifying factors: The symptoms are alleviated by nothing, the symptoms are aggravated by nothing. Associated signs and symptoms: Pertinent positives: nausea. Severity of symptoms: At their worst the symptoms were mild in the emergency department the symptoms are unchanged. Patient's baseline: Neuro: alert and fully oriented. Historical: - Allergies: 19:21 No Known Allergies; vc1 - Home Meds: 19:21 carvedilol Oral [Active]; losartan Oral [Active]; vc1 - PMHx: 19:21 carpal tunnel syndrome; Hyperlipidemia; Hypertension; Prostate Cancer; spinal stenosis; vc1 - PSHx: 19:21 None; vc1 - Immunization history:: Adult Immunizations up to date, Client reports receiving the 2nd dose of the Covid vaccine. - Social history:: Smoking status: Patient denies any tobacco usage or history of. Patient uses alcohol, on a daily basis. 1-2 bottles of wine daily. - Family history:: not pertinent. ROS: 19:31 Constitutional: Negative for fever, chills, and weight loss, Eyes: Negative for injury, carlos pain, redness, and discharge, ENT: Negative for injury, pain, and discharge, Neck: Negative for injury, pain, and swelling, Cardiovascular: Negative for chest pain, palpitations, and edema, Respiratory: Negative for shortness of breath, cough, wheezing, and pleuritic chest pain, Abdomen/GI: Negative for abdominal pain, nausea, vomiting, diarrhea, and constipation, Back: Negative for injury and pain, : Negative for injury, bleeding, discharge, and swelling, MS/Extremity: Negative for injury and deformity, Skin: Negative for injury, rash, and discoloration, Neuro: Negative for headache, weakness, numbness, tingling, and seizure, Psych: Negative for depression, anxiety, suicide ideation, homicidal ideation, and hallucinations, Allergy/Immunology: Negative for hives, rash, and allergies, Endocrine: Negative for neck swelling, polydipsia, polyuria, polyphagia, and marked weight changes, Hematologic/Lymphatic: Negative for swollen nodes, abnormal bleeding, and unusual bruising. Exam: 19:31 Constitutional: This is a well developed, well nourished patient who is awake, alert, carlos and in no acute distress. Head/Face: Normocephalic, atraumatic. Eyes: Pupils equal round and reactive to light, extra-ocular motions intact. Lids and lashes normal. Conjunctiva and sclera are non-icteric and not injected. Cornea within normal limits. Periorbital areas with no swelling, redness, or edema. ENT: Nares patent. No nasal discharge, no septal abnormalities noted. Tympanic membranes are normal and external auditory canals are clear. Oropharynx with no redness, swelling, or masses, exudates, or evidence of obstruction, uvula midline. Mucous membranes moist. Neck: Trachea midline, no thyromegaly or masses palpated, and no cervical lymphadenopathy. Supple, full range of motion without nuchal rigidity, or vertebral point tenderness. No Meningismus. Chest/axilla: Normal chest wall appearance and motion. Nontender with no deformity. No lesions are appreciated. Cardiovascular: Regular rate and rhythm with a normal S1 and S2. No gallops, murmurs, or rubs. Normal PMI, no JVD. No pulse deficits. Respiratory: Lungs have equal breath sounds bilaterally, clear to auscultation and percussion. No rales, rhonchi or wheezes noted. No increased work of breathing, no retractions or nasal flaring. Abdomen/GI: Soft, non-tender, with normal bowel sounds. No distension or tympany. No guarding or rebound. No evidence of tenderness throughout. Back: No spinal tenderness. No costovertebral tenderness. Full range of motion. Male : Normal genitalia with no discharge or lesions. Skin: Warm, dry with normal turgor. Normal color with no rashes, no lesions, and no evidence of cellulitis. MS/ Extremity: Pulses equal, no cyanosis. Neurovascular intact. Full, normal range of motion. Neuro: Awake and alert, GCS 15, oriented to person, place, time, and situation. Cranial nerves II-XII grossly intact. Motor strength 5/5 in all extremities. Sensory grossly intact. Cerebellar exam normal. Normal gait. Psych: Awake, alert, with orientation to person, place and time. Behavior, mood, and affect are within normal limits. 19:45 ECG was reviewed by the Attending Physician. carlos Vital Signs: 19:17 BP 150 / 95; Pulse 80; Resp 10; Temp 98.5; Pulse Ox 97% on R/A; Weight 83.91 kg; Height vc1 6 ft. 0 in. (182.88 cm); Pain 0/10; 20:05 BP 153 / 92; Pulse 85; Resp 10; Pulse Ox 97% on R/A; vc1 22:01 BP 145 / 97; Pulse 86; Resp 14 S; Pulse Ox 98% on R/A; bb 19:17 Body Mass Index 25.09 (83.91 kg, 182.88 cm) vc1 MDM: 19:25 Patient medically screened. carlos 19:33 Differential Diagnosis altered mental status. Differential diagnosis: cardiac carlos arrhythmia, CVA, generalized weakness. Data reviewed: vital signs, nurses notes, EMS record, lab test result(s), EKG, radiologic studies, CT scan, plain films. Data interpreted: monitor technician: rate is 80 beats/min, rhythm is regular. Counseling: I had a detailed discussion with the patient and/or guardian regarding: the historical points, exam findings, and any diagnostic results supporting the discharge/admit diagnosis, lab results, radiology results, the need for outpatient follow up. 12/02 19:30 Order name: Basic Metabolic Panel; Complete Time: 20:30 [facility] 12/02 19:30 Order name: CBC with Diff; Complete Time: 20:30 [facility] 12/02 19:30 Order name: LFT's; Complete Time: 20:30 [facility] 12/02 19:30 Order name: Magnesium; Complete Time: 20:30 [facility] 12/02 19:30 Order name: NT PRO-BNP; Complete Time: 20:30 [facility] 12/02 19:30 Order name: PT-INR; Complete Time: 20:30 [facility] 12/02 19:30 Order name: Troponin HS; Complete Time: 20:30 [facility] 12/02 19:30 Order name: XRAY Chest (1 view); Complete Time: 21:16 carlos 12/02 19:30 Order name: Acetaminophen; Complete Time: 20:30 carlos 12/02 19:30 Order name: ETOH Level; Complete Time: 21:16 carlos 12/02 19:30 Order name: Ptt, Activated; Complete Time: 20:30 carlos 12/02 19:30 Order name: Salicylate; Complete Time: 21:16 carlos 12/02 19:30 Order name: Urine Drug Screen; Complete Time: 20:30 carlos 12/02 20:10 Order name: Urine Dipstick-Ancillary; Complete Time: 20:30 [facility] 12/02 19:30 Order name: EKG; Complete Time: 19:31 carlos 12/02 19:30 Order name: Cardiac monitoring; Complete Time: 19:58 [facility] 12/02 19:30 Order name: EKG - Nurse/Tech; Complete Time: 19:58 [facility] 12/02 19:30 Order name: IV Saline Lock; Complete Time: 19:58 carlos 12/02 19:30 Order name: Labs collected and sent; Complete Time: 19:58 [facility] 12/02 19:30 Order name: O2 Per Protocol; Complete Time: 19:59 [facility] 12/02 19:30 Order name: O2 Sat Monitoring; Complete Time: 19:58 [facility] 12/02 19:30 Order name: CT Head Brain wo Cont [facility] 12/02 19:30 Order name: Suicide Screening ([place]); Complete Time: 19:59 [facility] 12/02 19:30 Order name: Urine Dipstick-Ancillary (obtain specimen); Complete Time: 19:59 carlos EC:45 Rate is 82 beats/min. Rhythm is regular. QRS [place] is Normal. [place] interval is normal. QRS carlos interval is normal. QT interval is normal. No Q waves. T waves are Normal. No ST changes noted. Clinical impression: NSR w/ Non-specific ST/T Changes and No evidence of ischemia. Interpreted by me. Reviewed by me. Administered Medications: :58 Drug: Thiamine 100 mg Route: IV; Rate: per protocol; Site: right wrist; aa9 19:58 Drug: Banana Bag - (NS 0.9% 1000 ml, foLIC Acid 1 mg, Thiamine 100 mg, Multivitamin 1 aa9 amp) Route: IV; Rate: 500 ml/hr; Site: right wrist; 19:58 Drug: Pepcid (famotidine) 20 mg Route: IVP; Site: right wrist; aa9 Disposition Summary: 12/02/21 21:17 Discharge Ordered Location: Home carlos Problem: new carlos Symptoms: have improved carlos Condition: Stable carlos Diagnosis - Alcohol abuse with intoxication carlos - Weakness carlos Followup: carlos - With: Private Physician - When: 2 - 3 days - Reason: Recheck today's complaints, Continuance of care, Re-evaluation by your physician Discharge Instructions: - Discharge Summary Sheet carlos - Alcohol Intoxication carlos - Near-Syncope carlos - Weakness carlos - Alcohol Intoxication, [id number] carlos - Fatigue carlos - Near-Syncope, [id number]-vy-[id number] carlos - Weakness, [id number] carlos - Deconditioning carlos Forms: - Medication Reconciliation Form carlos - Thank You Letter carlos - Antibiotic Education carlos - Prescription Opioid Use carlos Prescriptions: - Folic Acid 1 mg Oral Tablet - take 1 tablet by ORAL route once daily; 30 tablet; Refills: 0, Product carlos Selection Permitted Signatures: Dispatcher [employer] Naif Elaine MD MD cha Calcote, Vanessa RN RN vc1 Sarah Webber RN RN aa9
--- NOTE | 2021-12-02 21:33 | RAD REPORT ---
EXAM DESCRIPTION: CT - Head Brain Wo Cont - 12/02/2021 9:06 pm CLINICAL HISTORY: Polytrauma, blunt COMPARISON: No comparisons TECHNIQUE: All CT scans are performed using dose optimization technique as appropriate and may inclu de automated exposure control or mA/KV adjustment according to patient size. FINDINGS: No intracranial hemorrhage, hydrocephalus or extra-axial fluid collection.No areas of brai n edema or evidence of midline shift. Cerebral atrophy. The paranasal sinuses and mastoids are clear. The calvarium is intact. IMPRESSION: No acute intracranial abnormality.
[2021-12-02 22:56] VITALS: TEMP 98.5
[2021-12-02 23:08] VITALS: BP 145/97; O2SAT 98
== END 2021-12-02 22:02 | disposition home or self-care (01) ==
LOC: ER 19:13
DX: F10.129 Alcohol abuse with intoxication, unspecified (principal); I10 Essential (primary) hypertension; E78.5 Hyperlipidemia, unspecified; Z85.46 Personal history of malignant neoplasm of prostate
CPT/HCPCS: 85025; 80048; 36415; 80320; 83735; 80329 ×2; 85610; 80076; 85730; 81003; 84484; 83880; 80307; 70450; 71045; J3411; J7030